=== PATIENT | female | born 1935 | race Caucasian/White ===

== ENCOUNTER 2016-10-31 06:21 | Inpatient (IN) | payer MEDICARE, OTHER ==
[~2016-10-31] VITALS: Ht 167.6 cm; Wt 62.6 kg
[~2016-10-31 06:21] MED LIST: ACET500T68 PO; AMLO5TAB2 PO; CA C1TAB38 PO; CHOL10003 PO; CLOB15OI TP; GABA-586 PO; HYDR25TA9 PO; MULT-658 PO; OMEP20TA63 PO; UBID100C26 PO
--- NOTE | 2016-10-31 06:26 | PHYS DOC ---
Adult General Chief Complaint Chief Complaint: CHEST PAIN HPI HPI Patient is a 80 year old female presenting to the emergency department for evaluation of neck tightness that has been an ongoing issue for months but the reason she came in this morning is because the tightness is radiating down her left arm. She says that she has no nausea vomiting charts of breath diaphoresis unilateral weakness numbness or tingling. Patient says that she takes her blood pressure frequently at home and each time she takes her blood pressure and it indicates that she has an irregular heartbeat. Patient has hypertension but no diabetes or high cholesterol and she says she has never had a stress test or heart catheterization or seen a structural layout worker. Patient is in no obvious distress with normal vital signs. Review of Systems Review of Systems Constitutional: Denies fever or chills [] Eyes: Denies change in visual acuity, redness, or eye pain [] HENT: Denies nasal congestion or sore throat [] Respiratory: Denies cough or shortness of breath [] Cardiovascular: No additional information not addressed in HPI [] GI: Denies abdominal pain, nausea, vomiting, bloody stools or diarrhea [] : Denies dysuria or hematuria [] Musculoskeletal: Denies back pain or joint pain [] Integument: Denies rash or skin lesions [] Neurologic: Denies headache, focal weakness or sensory changes [] Current Medications Current Medications Current Medications Medications (Trade) Dose Ordered Sig/Lawanda Start Time Stop Time Status Last Admin Dose Admin Aspirin (Ecotrin) 325 mg 1X ONCE 10/31/16 07:00 10/31/16 07:01 DC 10/31/16 06:44 325 MG Diazepam (Valium) 5 mg 1X ONCE 10/31/16 07:00 10/31/16 07:01 DC 10/31/16 06:56 5 MG Allergies Allergies Allergies Coded Allergies Type Severity Reaction Last Updated Verified cimetidine Allergy Intermediate 01/04/14 Yes ibuprofen Allergy Intermediate Hives 01/04/14 Yes pregabalin Allergy Intermediate Photosensitivity 01/04/14 Yes Physical Exam Physical Exam Constitutional: Well developed, well nourished, no acute distress, non-toxic appearance. [] HENT: Normocephalic, atraumatic, bilateral external ears normal, oropharynx moist, no oral exudates, nose normal. [] Eyes: PERRLA, EOMI, conjunctiva normal, no discharge. [] Neck: Normal range of motion, no tenderness, supple, no stridor. [] Cardiovascular:Heart rate regular rhythm, no murmur [] Lungs & Thorax: Bilateral breath sounds clear to auscultation [] Abdomen: Bowel sounds normal, soft, no tenderness, no masses, no pulsatile masses. [] Skin: Warm, dry, no erythema, no rash. [] Back: No tenderness, no CVA tenderness. [] Extremities: No tenderness, no cyanosis, no clubbing, ROM intact, no edema. [] Neurologic: Alert and oriented X 3, normal motor function, normal sensory function, no focal deficits noted. [] Current Patient Data Vital Signs Vital Signs Date Time Temp Pulse Resp B/P (MAP) Pulse Ox O2 Delivery O2 Flow Rate FiO2 10/31/16 06:57 67 163/71 (101) 10/31/16 06:33 18 100 Room Air 10/31/16 06:25 98.6 98.6 Lab Values Laboratory Tests Test 10/31/16 06:20 White Blood Count 11.6 x10^3/uL (4.0-11.0) H Red Blood Count 4.36 x10^6/uL (3.50-5.40) Hemoglobin 12.9 g/dL (12.0-15.5) Hematocrit 38.4 % (36.0-47.0) Mean Corpuscular Volume 88 fL (79-100) Mean Corpuscular Hemoglobin 30 pg (25-35) Mean Corpuscular Hemoglobin Concent 34 g/dL (31-37) Red Cell Distribution Width 15.6 % (11.5-14.5) H Platelet Count 270 x10^3/uL (140-400) Neutrophils (%) (Auto) 75 % (31-73) H Lymphocytes (%) (Auto) 18 % (24-48) L Monocytes (%) (Auto) 6 % (0-9) Eosinophils (%) (Auto) 1 % (0-3) Basophils (%) (Auto) 0 % (0-3) Neutrophils # (Auto) 8.7 x10^3uL (1.8-7.7) H Lymphocytes # (Auto) 2.0 x10^3/uL (1.0-4.8) Monocytes # (Auto) 0.7 x10^3/uL (0.0-1.1) Eosinophils # (Auto) 0.1 x10^3/uL (0.0-0.7) Basophils # (Auto) 0.1 x10^3/uL (0.0-0.2) Prothrombin Time 12.8 SEC (11.7-14.0) Prothrombin Time INR 1.0 (0.8-1.1) PTT 26 SEC (24-38) Sodium Level 140 mmol/L (136-145) Potassium Level 3.2 mmol/L (3.5-5.1) L Chloride Level 101 mmol/L (98-107) Carbon Dioxide Level 32 mmol/L (21-32) Anion Gap 7 (6-14) Blood Urea Nitrogen 7 mg/dL (7-20) Creatinine 0.9 mg/dL (0.6-1.0) Estimated GFR (Cockcroft-Gault) 60.2 BUN/Creatinine Ratio 8 (6-20) Glucose Level 98 mg/dL (70-99) Calcium Level 10.2 mg/dL (8.5-10.1) H Magnesium Level 1.7 mg/dL (1.8-2.4) L Total Bilirubin 0.5 mg/dL (0.2-1.0) Aspartate Amino Transferase (AST) 20 U/L (15-37) Alanine Aminotransferase (ALT) 19 U/L (14-59) Alkaline Phosphatase 70 U/L (46-116) Troponin I Quantitative < 0.017 ng/mL (0.000-0.055) UB-Iax-A-Type Natriuretic Peptide 397 pg/mL (0-449) Total Protein 7.4 g/dL (6.4-8.2) Albumin 3.8 g/dL (3.4-5.0) Albumin/Globulin Ratio 1.1 (1.0-1.7) Lipase 79 U/L (73-393) Laboratory Tests 10/31/16 06:20 Laboratory Tests 10/31/16 06:20 EKG EKG Normal sinus rhythm at 70 bpm with normal axis no obvious ST elevation or depression with normal T waves. Radiology/Procedures Radiology/Procedures Normal mediastinum and normal heart size no obvious free air pneumothorax or opacity. Course & Med Decision Making Course & Med Decision Making Patient with neck tightness that radiates down her left arm. She'll be given aspirin and Valium check labs and reassess. Heart score is equal to 4. Given patient has had no prior cardiac risk stratification she'll be admitted for further observation and treatment. Dragon Disclaimer Dragon Disclaimer This electronic medical record was generated, in whole or in part, using a voice recognition dictation system. Departure Departure Impression: Primary Impression: Chest pain Additional Impressions: Hypokalemia Hypomagnesemia Disposition: ADMITTED INPATIENT Admitting Physician: Other (REUSCH) Condition: STABLE Referrals: FINN GLORIA Jr, MD (PCP) Problem Qualifiers Primary Impression: Chest pain Chest pain type: unspecified Qualified Codes: R07.9 - Chest pain, unspecified DOUG OTT DO Oct 31, 2016 06:26
[2016-10-31 06:50] LABS: BASO # 0.1 x10^3/uL (0.0-0.2); BASO % 0 % (0-3); EOS % 1 % (0-3); HEMATOCRIT 38.4 % (36.0-47.0); HEMOGLOBIN 12.9 g/dL (12.0-15.5); LYMPH % 18 % (24-48); MEAN CORPUSCULAR HEMOGLOBIN 30 pg (25-35); MEAN CORPUSCULAR HGB CONC 34 g/dL (31-37); MEAN CORPUSCULAR VOLUME 88 fL (79-100); MONO % 6 % (0-9); NEUT % 75 % (31-73); PLATELET COUNT 270 x10^3/uL (140-400); RED BLOOD COUNT 4.36 x10^6/uL (3.50-5.40); RED CELL DISTRIBUTION WIDTH 15.6 % (11.5-14.5); WHITE BLOOD COUNT 11.6 x10^3/uL (4.0-11.0)
[2016-10-31 06:56] LABS: CALCIUM 10.2 mg/dL (8.5-10.1); CREATININE 0.9 mg/dL (0.6-1.0); GFR 60.2; POTASSIUM 3.2 mmol/L (3.5-5.1)
[2016-10-31] MEDS ORDERED: ASPIRIN ENTERIC COATED 325 MG TABLET.DR. PO ONE (07:00)
[2016-10-31] MEDS ORDERED: diazePAM 5 MG TABLET PO ONE (07:00)
[2016-10-31 07:01] LABS: ALBUMIN 3.8 g/dL (3.4-5.0); ALBUMIN/GLOBULIN RATIO 1.1 (1.0-1.7); MAGNESIUM 1.7 mg/dL (1.8-2.4); TOTAL BILIRUBIN 0.5 mg/dL (0.2-1.0); TOTAL PROTEIN 7.4 g/dL (6.4-8.2)
[2016-10-31 07:08] LABS: PROTHROMBIN TIME PATIENT 12.8 SEC (11.7-14.0)
--- NOTE | 2016-10-31 07:36 | EKG ---
[facility] [address] [place] [address] Test Date: 2016-10-31 Test Time: 06:28:19 Pat Name: YAMILA MUIR Department: Room: Gender: Female Hammerer: : 1935 Requested By: DOUG OTT Order Number: [id number] Reading MD: Cl Carroll Measurements Intervals [place] Rate: 70 P: 55 [place]: 160 QRS: 34 QRSD: 100 T: 42 QT: 406 QTc: 441 Interpretive Statements SINUS RHYTHM LOW LIMB LEAD VOLTAGE RI6.01 Unconfirmed report Compared to ECG 03/07/2012 11:50:34 No significant changes Electronically Signed On 10-31-2016 16:51:22 CDT by Cl Carroll
[2016-10-31] MEDS ORDERED: ONDANSETRON PF 4 MG/2 ML VIAL. IV PRN (08:00)
[2016-10-31] MEDS ORDERED: fentaNYL PF VIAL 100 MCG/2 ML VIAL IV PRN (08:00)
--- NOTE | 2016-10-31 08:16 | RAD ---
Portable chest, 10/31/2016: History: Chest pain, left arm pain Comparison is made to a study from 06/18/2011. The heart size and pulmonary vascularity are normal. There is a calcified granuloma in the left lung. No pulmonary infiltrates are seen. There is no evidence of pleural fluid. IMPRESSION: No acute cardiopulmonary abnormality is detected.
[2016-10-31] MEDS ORDERED: MAGNESIUM SULFATE 2GM 50 ML IV ONE (08:30)
[2016-10-31] MEDS ORDERED: POTASSIUM CHLORIDE 20 MEQ TABLET.ER. PO ONE (09:00)
[2016-10-31] MEDS ORDERED: POTA10TA12 PO (09:38)
[2016-10-31] MEDS ORDERED: CALC11776 PO (09:38)
[2016-10-31] MEDS ORDERED: CARV6.252 PO (09:38)
--- NOTE | 2016-10-31 09:42 | PDOC2 ---
CARDIAC CONSULT DATE OF CONSULT Date of Consult DATE: 10/31/16 TIME: 09:32 REASON FOR CONSULT Reason for Consult: Chest pain REFERRING PHYSICIAN Referring Physician: Dr. Albert SOURCE Source: Chart review, Patient HISTORY OF PRESENT ILLNESS HISTORY OF PRESENT ILLNESS This is an 80 male who presented with complaints of neck pain that radiated down her left arm and palpitations. Neck pain has been ongoing for 2-3 months. Has been going to physical therapy, which did seem to help for a period of time. Recently, has had pain radiating down her left arm. Worse when she turns her head to the right. Recently, has felt fluttering sensation in her chest. Patient takes hear blood pressure frequently at home. Recently, monitor has indicated irregular heart rhythm, which combined with symptoms prompted her to seek care. Recently treated for hypokalemia by PCP. Has had some diarrhea recently. No previous h/o CAD or cardiac workup. PAST MEDICAL HISTORY Cardiovascular: HTN, Hyperlipidemia Pulmonary: No pertinent hx GI: No pertinent hx Heme/Onc: No pertinent hx Hepatobiliary: No pertinent hx Psych: No pertinent hx Musculoskeletal: Osteoarthritis Rheumatologic: No pertinent hx Infectious disease: No pertinent hx ENT: No pertinent hx Renal/: No pertinent hx Endocrine: No pertinent hx Dermatology: No pertinent hx PAST SURGICAL HISTORY Past Surgical History: Total hip replacement (left), Total knee replacement ( left), Hysterectomy, Other (back sx) FAMILY HISTORY Family History: Heart Disease, Hypertension SOCIAL HISTORY Smoke: No ALCOHOL: none Drugs: None Lives: Alone CURRENT MEDICATIONS CURRENT MEDICATIONS Current Medications Medications (Trade) Dose Ordered Sig/Lawanda Route PRN Reason Start Time Stop Time Status Last Admin Dose Admin Aspirin (Ecotrin) 325 mg 1X ONCE PO 10/31/16 07:00 10/31/16 07:01 DC 10/31/16 06:44 Diazepam (Valium) 5 mg 1X ONCE PO 10/31/16 07:00 10/31/16 07:01 DC 10/31/16 06:56 ALLERGIES ALLERGIES: Coded Allergies: cimetidine (Verified Allergy, Intermediate, 01/04/14) Blacks out ibuprofen (Verified Allergy, Intermediate, Hives, 01/04/14) pregabalin (Verified Allergy, Intermediate, Photosensitivity, 01/04/14) ROS Review of System point ROS conducted with pertinent positives noted above in HPI. PHYSICAL EXAM General: Alert, Oriented X3, Cooperative HEENT: Atraumatic, Mucous membr. moist/pink Lungs: Normal air movement Heart: Regular rate, Normal S1, Normal S2, Other (tele SR with frequent PAC's ) Abdomen: Soft, No tenderness Extremities: No edema, Normal pulses Skin: No breakdown, No significant lesion Neuro: Normal speech, Sensation intact Psych/Mental Status: Mental status NL, Mood NL MUSCULOSKELETAL: Osteoarthritic changes both hands VITALS VITALS Vital Signs Date Time Temp Pulse Resp B/P (MAP) Pulse Ox O2 Delivery O2 Flow Rate FiO2 10/31/16 06:57 67 163/71 (101) 10/31/16 06:33 18 100 Room Air 10/31/16 06:25 98.6 98.6 LABS Lab: Laboratory Tests Test 10/31/16 06:20 White Blood Count 11.6 x10^3/uL (4.0-11.0) Red Blood Count 4.36 x10^6/uL (3.50-5.40) Hemoglobin 12.9 g/dL (12.0-15.5) Hematocrit 38.4 % (36.0-47.0) Mean Corpuscular Volume 88 fL (79-100) Mean Corpuscular Hemoglobin 30 pg (25-35) Mean Corpuscular Hemoglobin Concent 34 g/dL (31-37) Red Cell Distribution Width 15.6 % (11.5-14.5) Platelet Count 270 x10^3/uL (140-400) Neutrophils (%) (Auto) 75 % (31-73) Lymphocytes (%) (Auto) 18 % (24-48) Monocytes (%) (Auto) 6 % (0-9) Eosinophils (%) (Auto) 1 % (0-3) Basophils (%) (Auto) 0 % (0-3) Neutrophils # (Auto) 8.7 x10^3uL (1.8-7.7) Lymphocytes # (Auto) 2.0 x10^3/uL (1.0-4.8) Monocytes # (Auto) 0.7 x10^3/uL (0.0-1.1) Eosinophils # (Auto) 0.1 x10^3/uL (0.0-0.7) Basophils # (Auto) 0.1 x10^3/uL (0.0-0.2) Prothrombin Time 12.8 SEC (11.7-14.0) Prothromb Time International Ratio 1.0 (0.8-1.1) Activated Partial Thromboplast Time 26 SEC (24-38) Sodium Level 140 mmol/L (136-145) Potassium Level 3.2 mmol/L (3.5-5.1) Chloride Level 101 mmol/L (98-107) Carbon Dioxide Level 32 mmol/L (21-32) Anion Gap 7 (6-14) Blood Urea Nitrogen 7 mg/dL (7-20) Creatinine 0.9 mg/dL (0.6-1.0) Estimated GFR (Cockcroft-Gault) 60.2 BUN/Creatinine Ratio 8 (6-20) Glucose Level 98 mg/dL (70-99) Calcium Level 10.2 mg/dL (8.5-10.1) Magnesium Level 1.7 mg/dL (1.8-2.4) Total Bilirubin 0.5 mg/dL (0.2-1.0) Aspartate Amino Transf (AST/SGOT) 20 U/L (15-37) Alanine Aminotransferase (ALT/SGPT) 19 U/L (14-59) Alkaline Phosphatase 70 U/L (46-116) Troponin I Quantitative < 0.017 ng/mL (0.000-0.055) LS-Dlv-B-Type Natriuretic Peptide 397 pg/mL (0-449) Total Protein 7.4 g/dL (6.4-8.2) Albumin 3.8 g/dL (3.4-5.0) Albumin/Globulin Ratio 1.1 (1.0-1.7) Lipase 79 U/L (73-393) ASSESSMENT/PLAN ASSESSMENT/PLAN 1. Neck pain 2. Palpitations 3. Malignant hypertension 4. Hypokalemia 5. Hypomagnesemia Recommendations 1. Trend troponin 2. Check TSH, lipids 3. Replace K and Mg. Monitor lytes 4. Resume home antiHTN therapy. Monitor to assess need for titration 5. Given risk factors will proceed with MPI to r/o ischemia etiology 6. Consider outpatient event monitor given palpitations. Consider converting coreg to metoprolol. Problems: MARQUIS RODRIGUEZ APRN Oct 31, 2016 09:42
[2016-10-31] MEDS ORDERED: REGADENOSON 0.4 MG/5 ML DISP.SYRIN. IV ONE (11:00)
[2016-10-31 11:39] VITALS: BP 157/67
[2016-10-31] MEDS ORDERED: amLODIPine BESYLATE 5 MG TABLET PO SCH (14:00)
--- NOTE | 2016-10-31 14:18 | RAD ---
APPROVED REPORT Test Type: Pharmacological Stress Nurse/Tech: Jazz Knox R.N. Test Indications: fast heartbeat Cardiac History: Family history, Hypertension Medications: See Electronic Medical Record Medical History: See Electronic Medical Record Resting ECG: NSR with few PAC's Resting Heart Rate: 64 bpm Resting Blood Pressure: 147/55mmHg Pretest Chest Pain: No chest pain Nurse/Tech Notes S1S2, lungs sound clear Consent: The procedure was explained to the patient in lay terms. Informed consent was witnessed. Rosas eout was entered into [employer]. History and Stress Test performed by Jazz Knox R.N. Pharm. Details Pharmacologic stress testing was performed using 0.4mg per 5ml of regadenoson given intravenously ove r 7-10 seconds. Stress Symptoms Dyspnea POST EXERCISE Reason for Termination: Infusion complete Max HR: 99 bpm Max Blood Pressure: 145/54mmHg Blood Pressure response to exercise: Normal blood pressure response during stress. Chest Pain: No. Arrhythmia: Yes. freq PAC,s. with bigeminy PAC,s ST Change: No. INTERPRETATION Stress EKG Conclusion: Baseline EKG showed sinus rhythm. No ischemic changes at peak stress. No arr hythmias. Imaging Protocol IMAGE PROTOCOL: Rest Tc-99m/stress Tc-99m 1 day Rest: Stress: Viability: Radiopharm.Tc99m NbutsorcoLj26g Sestamibi Dose11.3mCi 32mCi Img Date 10/31/2016 10/31/2016 Inj-Img [id number]. 60min. Rest Admin Site:IV - Left AntecubitalAdministrator:TESFAYE Chase Stress Admin Site: IV - Left AntecubitalAdministrator: Arthur Quinonez, RT (R)(N) STRESS DATA End Diast. Vol.68.0mlAv. Heart Rate83.0bpm End Syst. Vol.10.0mlCO Index BSA0.0L/min Myocardial Xewz830.0gEject. Srysvzdi49.0% Stress Rates Pk. Fill Rate4.83EDV/secLVtime Pk. Fill 203.31msec Pk. Empty Rate5.82ESV/secLVtime Pk. Izvbe986.84msec 04/01 Pk. Fill1.23EDV/sec Stress Scores Regional WT0.00Summed WT0.00 Regional WM0.00Summed WM0.00 Study quality was good. Left Ventricular size was Normal at Rest and Stress. Lung uptake was Normal. Left Ventricular ejection fraction is 85%. The rest and stress images show normal perfusion, normal contraction and thickening. LV Perf. Quant 17 Seg. SSS0.00 17 Seg. SRS1.00 17 Seg. SDS0.00 Stress Defect Extent (% LAD)0.00Rest Defect Extent (% LAD)3.10Rev. Defect Extent (% LAD)0.00 Stress Defect Extent (% LCX) 5.00Rest Defect Extent (% LCX)0.00Rev. Defect Extent (% LCX)0.00 Stress Defect Extent (% RCA)0.00Rest Defect Extent (% RCA)0.00Rev. Defect Extent (% RCA)0.00 Stress Defect Extent (% CHHAYA)0.90Rest Defect Extent (% CHHAYA)2.20Rev. Defect Extent (% CHHAYA)0.00 Conclusion 1. Regadenoson cardioisotope stress test did not show any evidence of ischemia or infarct. 2. Normal left ventricular systolic function with ejection fraction calculated at 85%. 3. Low risk for cardiac events.
[2016-10-31 15:23] LABS: CHOLESTEROL/HDL RATIO 2.5
[2016-10-31 15:27] VITALS: BP 131/48
[2016-10-31] MEDS ORDERED: CARVEDILOL 6.25 MG TABLET. PO SCH (17:00)
--- NOTE | 2016-10-31 18:02 | SSS ---
ADMIT DATE: 10/31/2016 CHIEF COMPLAINT: Palpitations. HISTORY OF PRESENT ILLNESS: The patient is an 80-year-old woman with past medical history of hypertension, who presented to the Emergency Room with a recurrent episode of strong palpitations in her chest. This actually had been going on episodically for the past 2-3 months, but has been get more frequently recently. She has associated neck pain with this as well. Also had pain radiating down her left arm, although this may be musculoskeletal as it seems to be worse with turning her head and she actually had undergone physical therapy as well. Today, however, she had fluttering her chest, which really did not seem to improve at all. When she checked her blood pressure, her heart rhythm was noted to be irregular and she came to the Emergency Room. The patient relates that she actually has been following with her PCP for a previously diagnosed hypokalemia, on replacement, and had been due for checked today. She has frequent diarrheal bowel movements, typically just once a day. She denies any previous heart issues. PAST MEDICAL HISTORY: Hypertension, hyperlipidemia and osteoarthritis. PAST SURGICAL HISTORY: Left total hip replacement, left total knee replacement as well as hysterectomy and back surgery. FAMILY HISTORY: Positive for heart disease as well as hypertension. SOCIAL HISTORY: Lives by herself, never smoked, denies any alcohol use. ALLERGIES: CIMETIDINE, IBUPROFEN, AND PREGABALIN. MEDICATIONS: MAR reconciled with home medications. REVIEW OF SYSTEMS: Positive as per HPI for palpitations, neck and arm pain. Symptoms currently are minimal. She denies any problems. Rest of organ system review save for diarrhea, typically in the morning and occasionally with incontinence. PHYSICAL EXAMINATION: VITAL SIGNS: From today show a blood pressure of 131/48, heart rate of 71, respiratory rate at 18. She is afebrile. GENERAL: This is an 80-year-old well-nourished, woman appearing younger than her stated age, alert and oriented, in no acute distress, very pleasant. HEENT: Shows no scleral icterus. NECK: Supple, without any lymphadenopathy. LUNGS: Clear to auscultation bilaterally. HEART: Regular rate and rhythm. ABDOMEN: Has positive bowel sounds, soft, nontender. EXTREMITIES: Show no edema. SKIN: Warm, soft and dry without any rash. LABORATORY DATA: CBC with a WBC of 11.6, hemoglobin of 12.9, platelets of 270. Chemistries with a BUN and creatinine of 7 and 0.9, potassium at 3.2 and magnesium of 1.7. LFTs within normal limits. IMAGING STUDIES: Chest x-ray obtained in the Emergency Room shows no cardiopulmonary abnormality. HOSPITAL COURSE: The patient was admitted to the hospital for further evaluation by Cardiology. Magnesium as well as potassium were replaced via IV. Cardiology consult was obtained and she was evaluated with a stress test, which was negative; therefore, was deemed appropriate for discharge to home. She will be mailed a Holter monitor for further evaluation of her arrhythmia. She will follow up with Cardiology as arranged by Cardiology on Thursday. SINDI VILLALBA MD DR: SAMSON/nts JOB#: [id number] / [id number] FINN Flanagan MD MTDD
--- NOTE | 2016-11-01 01:18 | ACF ---
Admission Forms Criteria CHEST PAIN Clinical Indications for Admission to Inpatient Care (Place 'X' for any and all applicable criteria): Admission is indicated for chest pain and ANY ONE of the following(1)(2)(3)(4)(5 ): [ ]I. Angina with acute coronary syndrome (Also use Myocardial Infarction or Angina guideline) [ ]II. Hemodynamic instability [ ]III. Angina needing acute intervention as indicated by ALL of the following( 11)(12): [ ]a) Unstable angina is present as indicated by angina that is ANY ONE of the following: [ ]i) New onset [ ]ii) Nocturnal [ ]iii) Prolonged at rest [ ]iv) Progressive [ ]b) Angina warrants acute intervention as indicated by ANY ONE of the following: [ ]i) Recurrent angina (e.g, not responding as previously to treatment) [ ]ii) Angina at rest or with low-level activities despite initial medical therapy [ ]iii) New or presumably new ST-segment depression on ECG [ ]iv) Signs or symptoms of heart failure (eg, dyspnea, pulmonary edema) [ ]v) New or worsening mitral regurgitation [ ]vi) Hemodynamic instability [ ]vii) Dangerous arrhythmia (eg, sustained ventricular tachycardia) [ ]viii) History of percutaneous coronary intervention within 6 months [ ]ix) History of coronary artery bypass graft surgery [ ]x) CLAUS risk score of 2 or greater[A] [ ]xi) History of Diabetes(14) [ ]xii) High-risk cardiac ischemia findings on noninvasive testing (e.g, echocardiogram, treadmill testing, nuclear scan) [ ]xiii) Chronic renal insufficiency (ie, estimated GFR less than 60 mL/min/1.732m) [ ]xiv) Left ventricular ejection fraction less than 40% [ ]IV. Evidence of TX (eg, cardiac biomarkers positive, ST-segment elevation on ECG) also use Myocardial Infarction Criteria Form. [ ]V. Pulmonary edema [ ]. Respiratory distress [ ]VII. Chest pain indicative of serious diagnosis other than coronary artery disease (eg, aortic dissection) [ ]VIII. Contraindications and/or Inappropriate clinical situations for Observational Care in patients with Chest Pain, when ANY ONE of the following is required: [ ]a) Patient with risk factor for pulmonary embolism, acute coronary syndrome and myocardial infarction (18) [ ]b) Patient with Pulmonary embolism require an average LOS of 4.3 days, therefore emergency department observation management is inappropriate 18,23 [ ]c) Painful condition/s in the elderly, have the highest rate of recidivism after emergency department observation management (10.8%) 20,21,22 [ ]d) Elevated cardiac biomarker requires intensive and exhaustive care (19) [X]IX. General contraindications and/or Inappropriate clinical situations for Observational Care in patients with Chest Pain, when ANY ONE of the following is required: [X]a) Prediction of prolongation of LOS based on ANY ONE of the following may be considered as a contraindication for observational care 2, 3, 4, 5, 6, 7, 8, 9, 10, 11 [X]i) Age > 65 yrs. [ ]ii) Patient arriving by ambulance [ ]iii) Patient with high acuity [ ]iv) Patient requiring vital sign monitoring [ ]v) Patient on IV medication [ ]b) Systolic blood pressures 180mmHg 3,12 [ ]c) Patient with altered mental status including delirium and other alteration of consciousness, (3) [ ]d) Patient whose discharge disposition will be to a senior care home or rehabilitation home should not be managed in Emergency Department Observation Unit. CMS rule requires 3 days hospital stay before such placement. 3,13 [ ]e) Patient with failure to thrive due to broad array of etiologies 3,16,17 [ ]f) Inability to ambulate 3,14 Extended stay beyond goal length of stay may be needed for (1)(28): [ ]a) Specific condition diagnosed after evaluation (eg, pulmonary embolism, aortic dissection) [ ]b) Unstable angina [ ]c) Continued suspicion of acute coronary syndrome with inability to complete needed cardiac evaluation (eg, patient clinically unable to undergo stress testing) [ ]d) Myocardial infarction (Contents from ANGINA and CHEST PAIN clinical indications for admission to inpatient care have been integrated in this form) The original [employer] content created by [employer] has been revised. The portions of the content which have been revised are identified through the use of italic text or in bold, and [facility] has neither reviewed nor approved the modified material. All other unmodified content is copyright [employer]. Please see references footnoted in the original [facility] [employer] edition 2016 Admission Criteria Met?: Yes JAVID JONES Nov 01, 2016 01:18
== END 2016-10-31 17:10 | disposition home or self-care (01) | DRG 556 ==
LOC: ER 06:21 → 6 SOUTH 07:20
PROVIDERS: ADMIT Internal Medicine Hematology & Oncology; ATTEND Internal Medicine Hematology & Oncology
DX: M79.1 Myalgia (principal); R07.9 Chest pain, unspecified; E87.6 Hypokalemia; E83.42 Hypomagnesemia; E78.5 Hyperlipidemia, unspecified; I10 Essential (primary) hypertension; M19.90 Unspecified osteoarthritis, unspecified site; Z96.642 Presence of left artificial hip joint; Z96.652 Presence of left artificial knee joint; Z60.2 Problems related to living alone; R00.2 Palpitations; M54.2 Cervicalgia; Z88.6 Allergy status to analgesic agent; Z88.8 Allergy status to other drugs, medicaments and biological substances; Z90.710 Acquired absence of both cervix and uterus; Z82.49 Family history of ischemic heart disease and other diseases of the circulatory system
CPT/HCPCS: 36415; 71010; 78452; 80053; 80061; 83690; 83735; 83880; 84443; 84484; 85027; 85610; 85730; 93005; 93017; 96374; 96375; 96376; A9500; C1887; J2785; J7060; 99285-25

== ENCOUNTER 2020-09-22 10:46 | Inpatient (IN) | payer MEDICARE ==
[~2020-09-22] VITALS: Ht 152.4 cm; Wt 51.9 kg
[~2020-09-22 10:46] MED LIST changes: +AMLO-186 PO; -AMLO5TAB2 PO; +CALC11776 PO; +CARV6.2511 PO; -GABA-586 PO; +GABA300C18 PO; +HYDR-2145 PO; -HYDR25TA9 PO; +POTASSIUM CHLO10 ME1 PO
--- NOTE | 2020-09-22 11:03 | RAD ---
FOR INTERNAL CODING PURPOSES Critical result: Findings discussed with Dr. Mcmahon at 09/22/2020 10:58 AM. RESULT CODE: (C) Exam: CT head without contrast. Date: 09/22/2020, comparison:None available Indication: Code stroke, altered mental status, effusion Technique: 5 mm axial images of the head were obtained without contrast. Findings: There is low attenuation within the periventricular white matter consistent with chronic small vessel ischemic disease. Prominence of cortical sulci and ventricular system is noted. There is cerebral at rophy. Midline structures are central. No hydrocephalus. No suspicious cerebral edema. No mass lesion or mid line shift is seen. No extra axial fluid collection, intracranial hemorrhage or acute ischemia is de tected. The visualized paranasal sinuses and mastoid air cells are clear. The osseous calvarium appea rs unremarkable. Impression: 1.Chronic small vessel ischemic disease and cerebral atrophy. 2.No acute findings. PQRS Compliance Statement: One or more of the following individualized dose reduction techniques were utilized for this examinat ion: 1. Automated exposure control 2. Adjustment of the mA and/or kV according to patient size 3. Use of iterative reconstruction technique Electronically signed by: Johanna Hu MD (09/22/2020 11:00 AM) [facility]
[2020-09-22 11:44] LABS: BASO # 0.1 x10^3/uL (0.0-0.2); BASO % 1 % (0-3); EOS % 0 % (0-3); HEMATOCRIT 37.4 % (36.0-47.0); HEMOGLOBIN 12.7 g/dL (12.0-15.5); LYMPH # 1.4 x10^3/uL (1.0-4.8); LYMPH % 16 % (24-48); MEAN CORPUSCULAR HEMOGLOBIN 30 pg (25-35); MEAN CORPUSCULAR HGB CONC 34 g/dL (31-37); MEAN CORPUSCULAR VOLUME 88 fL (79-100); MONO # 0.6 x10^3/uL (0.0-1.1); MONO % 7 % (0-9); NEUT # 6.6 x10^3/uL (1.8-7.7); NEUT % 76 % (31-73); PLATELET COUNT 460 x10^3/uL (140-400); RED BLOOD COUNT 4.24 x10^6/uL (3.50-5.40); RED CELL DISTRIBUTION WIDTH 15.2 % (11.5-14.5); WHITE BLOOD COUNT 8.7 x10^3/uL (4.0-11.0)
[2020-09-22 12:19] LABS: BILIRUBIN,URINE NEGATIVE (NEG); CLARITY,URINE CLEAR; COLOR,URINE YELLOW; NITRITE,URINE NEGATIVE (NEG); PROTEIN,URINE NEGATIVE (NEG-TRACE); UROBILINOGEN,URINE 0.2 mg/dL (0.2 mg/dL)
[2020-09-22 12:33] LABS: HYALINE CASTS, URINE FEW /HPF
[2020-09-22 12:34] LABS: RBC,URINE OCC /HPF (0-2); WBC,URINE OCC /HPF (0-4)
[2020-09-22 12:35] LABS: BACTERIA,URINE 0 /HPF (0-FEW)
[2020-09-22 12:51] LABS: PROTHROMBIN TIME PATIENT 12.2 SEC (11.7-14.0)
[2020-09-22 12:59] LABS: CALCIUM 8.7 mg/dL (8.5-10.1); CREATININE 0.8 mg/dL (0.6-1.0); GFR 68.3; POTASSIUM 3.8 mmol/L (3.5-5.1)
[2020-09-22 13:04] LABS: ALBUMIN 2.9 g/dL (3.4-5.0); MAGNESIUM 1.9 mg/dL (1.8-2.4); TOTAL BILIRUBIN 0.6 mg/dL (0.2-1.0); TOTAL PROTEIN 5.8 g/dL (6.4-8.2)
--- NOTE | 2020-09-22 13:33 | PHYS DOC ---
Past Medical History Past Medical History: High Cholesterol, Hypertension, Other Additional Past Medical Histor: poor historian Past Surgical History: Hip Replacement, Knee Replacement Additional Past Surgical Histo: left knee, left hip Smoking Status: Never Smoker Alcohol Use: Occasionally Drug Use: None General Adult EDM: Chief Complaint: CONFUSION HPI: HPI: Patient is a 84 year old female who was brought by EMS from home due to confusion. Per neighbor, patient was seen at [facility] for some medical problem. She was discharged home. Her neighbor checked on her today, found her to be very confused so EMS was called to take her here for evaluation. NOT SURE WHEN SHE WAS KNOWN NORMAL. Upon arrival to room, patient was confused, not coherent. She was observed moving all extremities but will not consistently following command. When asked what is her name, she said Yamila. She said she knows what today is but will not tell us what date. Her speech was clear. She was tracking with her eyes. Review of Systems: Review of Systems: not able to obtain due to condition Heart Score: C/O Chest Pain: N/A Risk Factors: Risk Factors: DM, Current or recent (<one month) smoker, HTN, HLP, family history of CAD, obesity. Risk Scores: Score 0 - 3: 2.5% MACE over next 6 weeks - Discharge Home Score 4 - 6: 20.3% MACE over next 6 weeks - Admit for Clinical Observation Score 7 - 10: 72.7% MACE over next 6 weeks - Early Invasive Strategies Allergies: Allergies: Allergies Coded Allergies Type Severity Reaction Last Updated Verified cimetidine Allergy Intermediate 01/04/14 Yes ibuprofen Allergy Intermediate Hives 01/04/14 Yes pregabalin Allergy Intermediate Photosensitivity 01/04/14 Yes Physical Exam: PE: Constitutional: Well developed, well nourished, no acute distress, non-toxic appearance. [] HENT: Normocephalic, atraumatic, bilateral external ears normal, oropharynx moist, no oral exudates, nose normal. [] Eyes: PERRLA, EOMI, conjunctiva normal, no discharge. [] Neck: Normal range of motion, no tenderness, supple, no stridor. [] Cardiovascular:Heart rate regular rhythm, no murmur [] Lungs & Thorax: Bilateral breath sounds clear to auscultation [] Abdomen: Bowel sounds normal, soft, no tenderness, no masses, no pulsatile masses. [] Skin: Warm, dry, no erythema, no rash. [] Back: No tenderness, no CVA tenderness. [] Extremities: No tenderness, no cyanosis, no clubbing, ROM intact, no edema. [] Neurologic: Alert but confused, normal motor function, normal sensory function, no focal deficits noted. [] Psychologic: Affect normal, judgement normal, mood normal. [] Current Patient Data: Labs: Laboratory Tests Test 09/22/20 11:30 09/22/20 11:58 09/22/20 12:10 09/22/20 12:34 White Blood Count 8.7 x10^3/uL (4.0-11.0) Red Blood Count 4.24 x10^6/uL (3.50-5.40) Hemoglobin 12.7 g/dL (12.0-15.5) Hematocrit 37.4 % (36.0-47.0) Mean Corpuscular Volume 88 fL (79-100) Mean Corpuscular Hemoglobin 30 pg (25-35) Mean Corpuscular Hemoglobin Concent 34 g/dL (31-37) Red Cell Distribution Width 15.2 % (11.5-14.5) H Platelet Count 460 x10^3/uL (140-400) H Neutrophils (%) (Auto) 76 % (31-73) H Lymphocytes (%) (Auto) 16 % (24-48) L Monocytes (%) (Auto) 7 % (0-9) Eosinophils (%) (Auto) 0 % (0-3) Basophils (%) (Auto) 1 % (0-3) Neutrophils # (Auto) 6.6 x10^3/uL (1.8-7.7) Lymphocytes # (Auto) 1.4 x10^3/uL (1.0-4.8) Monocytes # (Auto) 0.6 x10^3/uL (0.0-1.1) Eosinophils # (Auto) 0.0 x10^3/uL (0.0-0.7) Basophils # (Auto) 0.1 x10^3/uL (0.0-0.2) Urine Collection Type U cath Urine Color Yellow Urine Clarity Clear Urine pH 6.0 (<5.0-8.0) Urine Specific Hagerman 1.015 (1.000-1.030) Urine Protein Negative mg/dL (NEG-TRACE) Urine Glucose (UA) Negative mg/dL (NEG) Urine Ketones (Stick) Negative mg/dL (NEG) Urine Blood Negative (NEG) Urine Nitrite Negative (NEG) Urine Bilirubin Negative (NEG) Urine Urobilinogen Dipstick 0.2 mg/dL (0.2 mg/dL) Urine Leukocyte Esterase Negative (NEG) Urine RBC Occ /HPF (0-2) Urine WBC Occ /HPF (0-4) Urine Squamous Epithelial Cells Occ /LPF Urine Bacteria 0 /HPF (0-FEW) Urine Hyaline Casts Few /HPF Urine Mucus Slight /LPF Sodium Level 142 mmol/L (136-145) Potassium Level 3.8 mmol/L (3.5-5.1) Chloride Level 107 mmol/L (98-107) Carbon Dioxide Level 27 mmol/L (21-32) Anion Gap 8 (6-14) Blood Urea Nitrogen 18 mg/dL (7-20) Creatinine 0.8 mg/dL (0.6-1.0) Estimated GFR (Cockcroft-Gault) 68.3 BUN/Creatinine Ratio 23 (6-20) H Glucose Level 96 mg/dL (70-99) Calcium Level 8.7 mg/dL (8.5-10.1) Magnesium Level 1.9 mg/dL (1.8-2.4) Total Bilirubin 0.6 mg/dL (0.2-1.0) Aspartate Amino Transferase (AST) 18 U/L (15-37) Alanine Aminotransferase (ALT) 18 U/L (14-59) Alkaline Phosphatase 58 U/L (46-116) Troponin I Quantitative < 0.017 ng/mL (0.000-0.055) Total Protein 5.8 g/dL (6.4-8.2) L Albumin 2.9 g/dL (3.4-5.0) L Albumin/Globulin Ratio 1.0 (1.0-1.7) Prothrombin Time 12.2 SEC (11.7-14.0) Prothrombin Time INR 0.9 (0.8-1.1) Activated Partial Thromboplast Time 26 SEC (24-38) Laboratory Tests 09/22/20 11:30 Laboratory Tests 09/22/20 12:10 Vital Signs: Vital Signs Date Time Temp Pulse Resp B/P (MAP) Pulse Ox O2 Delivery O2 Flow Rate FiO2 09/22/20 10:46 97.9 79 16 142/67 (92) 97 Room Air 97.9 EKG: EKG: EKG was done at 1102, heart rate 78 bpm, no ST segment elevation. [] Radiology/Procedures: Radiology/Procedures: [][facility] [address] [place] [address] IMAGING REPORT Signed PATIENT: YAMILA MUIR ACCOUNT: [id number] : 1935 LOCATION: ER AGE: 84 SEX: F EXAM STATUS: REG ER ORD. PHYSICIAN: VALERIA MARTEL DO REASON: AMS, APHASIA PROCEDURE: CT CODE STROKE HEAD WO FOR INTERNAL CODING PURPOSES Critical result: Findings discussed with Dr. Martel at 09/22/2020 10:58 AM. RESULT CODE: (C) Exam: CT head without contrast. Date: 09/22/2020, comparison:None available Indication: Code stroke, altered mental status, effusion Technique: 5 mm axial images of the head were obtained without contrast. Findings: There is low attenuation within the periventricular white matter consistent with chronic small vessel ischemic disease. Prominence of cortical sulci and ventric ular system is noted. There is cerebral atrophy. Midline structures are central. No hydrocephalus. No suspicious cerebral edema. No mass lesion or midline shift is seen. No extra axial fluid collection, intracranial hemorrhage or acute ischemia is detected. The visualized paranasal sinuses and mastoid air cells are clear. The osseous calvarium appears unremarkable. Impression: 1.Chronic small vessel ischemic disease and cerebral atrophy. 2.No acute findings. PQRS Compliance Statement: One or more of the following individualized dose reduction techniques were utilized for this examination: 1. Automated exposure control 2. Adjustment of the mA and/or kV according to patient size 3. Use of iterative reconstruction technique Electronically signed by: Johanna Hu MD (09/22/2020 11:00 AM) [facility] DICTATED and SIGNED BY: JOHANNA HU MD DATE: 09/22/20 [id number] 0 Course & Med Decision Making: Course & Med Decision Making Pertinent Labs and Imaging studies reviewed. (See chart for details) Patient is an 84-year-old female who was brought here by EMS from home due to confusion. CT scan and lab work did not show any acute problem. After she was here for couple hour patient was awake alert oriented to time place and person, she was able to get up and walk to the bathroom without any problem. I suspect that patient had episode of sundown. Patient will be admitted to hospital for observation. Discussed with the hospitalist on-call Dr. Linares who agreed to admit the patient Dragon Disclaimer: Andres Disclaimer: This electronic medical record was generated, in whole or in part, using a voice recognition dictation system. Departure Departure Impression: Primary Impression: AMS (altered mental status) Additional Impression: Dementia Disposition: 09 ADMITTED INPATIENT Admitting Physician: RADHA (Dr. Linares) Condition: IMPROVED Referrals: UNKNOWN PCP NAME (PCP) VALERIA MARTEL DO Sep 22, 2020 13:33
--- NOTE | 2020-09-22 13:57 | PDOC1 ---
History and Physical Date of Admission Date of Admission DATE: 09/22/20 TIME: 13:57 Identification/Chief Complaint Chief Complaint CONFUSIOM, SISTER AND NEIGHBOR CONCERNED, fall with head injury last week History of Present Illness History of Present Illness 84 YR OLD FEMALE who fell last week, with head injury was discharged from [facility] ? yesterday, poor historian for exact details, went home and " stayed up too late talking to her sister " awoke confused, family called EMS. on arrival here was confused, seen by Dr Martel who was concerned for new onset AMS. After arriving in ER, Mentation now much improved, walking to restroom, oriented to place, year, month, day, current President, will plan to admit and consult Neurology, culture blood and urine, neurochecks q 4 hrs, fall precautions IMPRESSION ===Chronic small vessel ischemic disease and cerebral atrophy. No acute findings. on CT HEAD 09-22 / ALTERED mentation, now improving / fall with head injury last week , possible concussion syndrome plan == Neurology consult // need recent records [facility] blood and urine cultures neurochecks q 4 hrs dvt prophylaxis home meds fall precautions D/W ER Past Medical History Past Medical History Past Medical History Past Medical History: High Cholesterol, Hypertension, Other Additional Past Medical Histor: poor historian Past Surgical History: Hip Replacement, Knee Replacement Additional Past Surgical Histo: left knee, left hip Smoking Status: Never Smoker Alcohol Use: Occasionally Drug Use: None FHX HTN PAST MEDICAL HISTORY: Hypertension, hyperlipidemia and osteoarthritis. PAST SURGICAL HISTORY: Left total hip replacement, left total knee replacement as well as hysterectomy and back surgery. FAMILY HISTORY: Positive for heart disease as well as hypertension. SOCIAL HISTORY: , never smoked, denies any alcohol use. ALLERGIES: CIMETIDINE, IBUPROFEN, AND PREGABALIN. MEDICATIONS: MAR reconciled with home medications. Cardiovascular: HTN, Hyperlipidemia Pulmonary: No pertinent hx GI: No pertinent hx Heme/Onc: No pertinent hx Hepatobiliary: No pertinent hx Psych: No pertinent hx Musculoskeletal: Osteoarthritis Rheumatologic: No pertinent hx Infectious disease: No pertinent hx ENT: No pertinent hx Renal/: No pertinent hx Endocrine: No pertinent hx Past Surgical History Past Surgical History: Total hip replacement, Total knee replacement, Hysterectomy, Other Family History Family History: Heart Disease, Hypertension Social History Smoke: No ALCOHOL: none Drugs: None Current Problem List Problem List Problems Medical Problems: (1) AMS (altered mental status) Status: Acute (2) Dementia Status: Acute Current Medications Current Medications Active Scripts Active Reported Tums Ultra Strength (Calcium Carbonate) 1,177 Mg Tab.chew 1,177 Mg PO PRN PRN Potassium Chloride 10 Meq Tablet.er 10 Meq PO DAILY Carvedilol 6.25 Mg Tablet 1 Tab PO BID Calcium + D Soft Chewable Tab (Ca Carbonate/Vitamin D3/Vit K) 1 Each Tab.chew 1 Each PO Centrum Silver Tablet (Multivits-Min/Fa/Lycopene/Lut) 1 Each Tablet 1 Each PO Acetaminophen 500 Mg Tablet 500 Mg PO Amlodipine Besylate 5 Mg Tablet 1 Tab PO DAILY Allergies Allergies: Coded Allergies: cimetidine (Verified Allergy, Intermediate, 01/04/14) Blacks out ibuprofen (Verified Allergy, Intermediate, Hives, 01/04/14) pregabalin (Verified Allergy, Intermediate, Photosensitivity, 01/04/14) Physical Exam Physical Exam Constitutional: Well developed, well nourished, no acute distress, non-toxic appearance. [] HENT: Normocephalic, atraumatic, bilateral external ears normal, oropharynx moist, no oral exudates, nose normal. [] Eyes: PERRLA, EOMI, conjunctiva normal, no discharge. [] Neck: Normal range of motion, no tenderness, supple, no stridor. [] Cardiovascular:Heart rate regular rhythm, no murmur [] Lungs & Thorax: Bilateral breath sounds clear to auscultation [] Abdomen: Bowel sounds normal, soft, no tenderness, no masses, no pulsatile m asses. [] Skin: Warm, dry, no erythema, no rash. [] Back: No tenderness, no CVA tenderness. [] Extremities: No tenderness, no cyanosis, no clubbing, ROM intact, no edema. [] Neurologic: Alert and oriented X 3, normal motor function, normal sensory function, no focal deficits noted. [] Psychologic: Affect normal, judgement normal, mood normal. [] General: Oriented X3, Cooperative, No acute distress HEENT: PERRLA, EOMI, Mucous membr. moist/pink Lungs: Clear to auscultation, Normal air movement Heart: S1S2, RRR, no thrills, no gallops, no jug vein distention Breasts: Not examined Abdomen: Normal bowel sounds, Soft Rectal Exam: not examined Extremities: No clubbing, No cyanosis, No edema Skin: No breakdown, No significant lesion Neuro: Normal speech, Sensation intact, Cranial nerves 3-12 NL Psych/Mental Status: Mental status NL, Mood NL Vitals Vitals Vital Signs Date Time Temp Pulse Resp B/P (MAP) Pulse Ox O2 Delivery O2 Flow Rate FiO2 09/22/20 10:46 97.9 79 16 142/67 (92) 97 Room Air 97.9 Labs Labs Laboratory Tests Test 09/22/20 11:30 09/22/20 11:58 09/22/20 12:10 09/22/20 12:34 White Blood Count 8.7 x10^3/uL (4.0-11.0) Red Blood Count 4.24 x10^6/uL (3.50-5.40) Hemoglobin 12.7 g/dL (12.0-15.5) Hematocrit 37.4 % (36.0-47.0) Mean Corpuscular Volume 88 fL (79-100) Mean Corpuscular Hemoglobin 30 pg (25-35) Mean Corpuscular Hemoglobin Concent 34 g/dL (31-37) Red Cell Distribution Width 15.2 % (11.5-14.5) Platelet Count 460 x10^3/uL (140-400) Neutrophils (%) (Auto) 76 % (31-73) Lymphocytes (%) (Auto) 16 % (24-48) Monocytes (%) (Auto) 7 % (0-9) Eosinophils (%) (Auto) 0 % (0-3) Basophils (%) (Auto) 1 % (0-3) Neutrophils # (Auto) 6.6 x10^3/uL (1.8-7.7) Lymphocytes # (Auto) 1.4 x10^3/uL (1.0-4.8) Monocytes # (Auto) 0.6 x10^3/uL (0.0-1.1) Eosinophils # (Auto) 0.0 x10^3/uL (0.0-0.7) Basophils # (Auto) 0.1 x10^3/uL (0.0-0.2) Urine Collection Type U cath Urine Color Yellow Urine Clarity Clear Urine pH 6.0 (<5.0-8.0) Urine Specific [place] 1.015 (1.000-1.030) Urine Protein Negative mg/dL (NEG-TRACE) Urine Glucose (UA) Negative mg/dL (NEG) Urine Ketones (Stick) Negative mg/dL (NEG) Urine Blood Negative (NEG) Urine Nitrite Negative (NEG) Urine Bilirubin Negative (NEG) Urine Urobilinogen Dipstick 0.2 mg/dL (0.2 mg/dL) Urine Leukocyte Esterase Negative (NEG) Urine RBC Occ /HPF (0-2) Urine WBC Occ /HPF (0-4) Urine Squamous Epithelial Cells Occ /LPF Urine Bacteria 0 /HPF (0-FEW) Urine Hyaline Casts Few /HPF Urine Mucus Slight /LPF Sodium Level 142 mmol/L (136-145) Potassium Level 3.8 mmol/L (3.5-5.1) Chloride Level 107 mmol/L (98-107) Carbon Dioxide Level 27 mmol/L (21-32) Anion Gap 8 (6-14) Blood Urea Nitrogen 18 mg/dL (7-20) Creatinine 0.8 mg/dL (0.6-1.0) Estimated GFR (Cockcroft-Gault) 68.3 BUN/Creatinine Ratio 23 (6-20) Glucose Level 96 mg/dL (70-99) Calcium Level 8.7 mg/dL (8.5-10.1) Magnesium Level 1.9 mg/dL (1.8-2.4) Total Bilirubin 0.6 mg/dL (0.2-1.0) Aspartate Amino Transf (AST/SGOT) 18 U/L (15-37) Alanine Aminotransferase (ALT/SGPT) 18 U/L (14-59) Alkaline Phosphatase 58 U/L (46-116) Troponin I Quantitative < 0.017 ng/mL (0.000-0.055) Total Protein 5.8 g/dL (6.4-8.2) Albumin 2.9 g/dL (3.4-5.0) Albumin/Globulin Ratio 1.0 (1.0-1.7) Prothrombin Time 12.2 SEC (11.7-14.0) Prothromb Time International Ratio 0.9 (0.8-1.1) Activated Partial Thromboplast Time 26 SEC (24-38) Laboratory Tests Test 09/22/20 11:30 09/22/20 11:58 09/22/20 12:10 09/22/20 12:34 White Blood Count 8.7 x10^3/uL (4.0-11.0) Red Blood Count 4.24 x10^6/uL (3.50-5.40) Hemoglobin 12.7 g/dL (12.0-15.5) Hematocrit 37.4 % (36.0-47.0) Mean Corpuscular Volume 88 fL (79-100) Mean Corpuscular Hemoglobin 30 pg (25-35) Mean Corpuscular Hemoglobin Concent 34 g/dL (31-37) Red Cell Distribution Width 15.2 % (11.5-14.5) Platelet Count 460 x10^3/uL (140-400) Neutrophils (%) (Auto) 76 % (31-73) Lymphocytes (%) (Auto) 16 % (24-48) Monocytes (%) (Auto) 7 % (0-9) Eosinophils (%) (Auto) 0 % (0-3) Basophils (%) (Auto) 1 % (0-3) Neutrophils # (Auto) 6.6 x10^3/uL (1.8-7.7) Lymphocytes # (Auto) 1.4 x10^3/uL (1.0-4.8) Monocytes # (Auto) 0.6 x10^3/uL (0.0-1.1) Eosinophils # (Auto) 0.0 x10^3/uL (0.0-0.7) Basophils # (Auto) 0.1 x10^3/uL (0.0-0.2) Urine Collection Type U cath Urine Color Yellow Urine Clarity Clear Urine pH 6.0 (<5.0-8.0) Urine Specific [place] 1.015 (1.000-1.030) Urine Protein Negative mg/dL (NEG-TRACE) Urine Glucose (UA) Negative mg/dL (NEG) Urine Ketones (Stick) Negative mg/dL (NEG) Urine Blood Negative (NEG) Urine Nitrite Negative (NEG) Urine Bilirubin Negative (NEG) Urine Urobilinogen Dipstick 0.2 mg/dL (0.2 mg/dL) Urine Leukocyte Esterase Negative (NEG) Urine RBC Occ /HPF (0-2) Urine WBC Occ /HPF (0-4) Urine Squamous Epithelial Cells Occ /LPF Urine Bacteria 0 /HPF (0-FEW) Urine Hyaline Casts Few /HPF Urine Mucus Slight /LPF Sodium Level 142 mmol/L (136-145) Potassium Level 3.8 mmol/L (3.5-5.1) Chloride Level 107 mmol/L (98-107) Carbon Dioxide Level 27 mmol/L (21-32) Anion Gap 8 (6-14) Blood Urea Nitrogen 18 mg/dL (7-20) Creatinine 0.8 mg/dL (0.6-1.0) Estimated GFR (Cockcroft-Gault) 68.3 BUN/Creatinine Ratio 23 (6-20) Glucose Level 96 mg/dL (70-99) Calcium Level 8.7 mg/dL (8.5-10.1) Magnesium Level 1.9 mg/dL (1.8-2.4) Total Bilirubin 0.6 mg/dL (0.2-1.0) Aspartate Amino Transf (AST/SGOT) 18 U/L (15-37) Alanine Aminotransferase (ALT/SGPT) 18 U/L (14-59) Alkaline Phosphatase 58 U/L (46-116) Troponin I Quantitative < 0.017 ng/mL (0.000-0.055) Total Protein 5.8 g/dL (6.4-8.2) Albumin 2.9 g/dL (3.4-5.0) Albumin/Globulin Ratio 1.0 (1.0-1.7) Prothrombin Time 12.2 SEC (11.7-14.0) Prothromb Time International Ratio 0.9 (0.8-1.1) Activated Partial Thromboplast Time 26 SEC (24-38) Images Images It helps to think and talk about your own wishes for healthcare in case youre ever not able to tell your loved ones or healthcare team what your wishes are. If you became really sick tomorrow, would your loved ones or healthcare team know what your wishes were? Here are some examples of different sets of goals and health care directives for your conversations: My wish is to use all medical therapies including resuscitation (such as CPR) and artificial life- sustaining treatments (such as machines and medicine) in an intensive care unit, to keep me alive if at all possible. My wish is to live as long as possible, but I dont want attempts to bring me back to life if my heart and breathing stop. I would like full medical care but without using resuscitation or artificial life-sustaining intensive treatments, if these are unlikely to make me live longer or restore me to a certain quality of life. I will accept treatments that try to fix medical problems, but if Im not getting better or going to have a certain quality of life, I would want to switch to focusing only on my comfort and letting my happen naturally. My wish is for healthcare to focus on my comfort and lessen suffering. I would like medical care that focuses only on my quality of life and that allows me to naturally. Consider: What does a good quality of life mean for me? For many people, it is the ability to live independently and tell their own story. I may define it differently. Under what circumstances would I not want to be kept alive by medical treatments, resuscitation, or intensive care? What kind of changes to my health or life might make me change my mind? If I clearly am facing the last chapter of my life, how do I want the story to end? Who do I want to speak for me if I cant speak for myself? Do they understand my preferences? Are they willing to assume the role of my Durable Power of Circular Knitter? Can I change my Goals of Care Designation? Yes, your Goals of Care Designation can be changed at any time. It should be reviewed if: your health condition changes your circumstances change (such as new understanding) you are transferred or admitted to another healthcare setting dpoa review, to pt portal 19 min and question review Nurse/Tech Notes S1S2, lungs sound clear Consent: The procedure was explained to the patient in lay terms. Informed consent was witnessed. Timeout was entered into [employer] History and Stress Test performed by [facility] [employer]. Details Pharmacologic stress testing was performed using 0.4mg per 5ml of regadenoson given intravenously over 7-10 seconds. Stress Symptoms Dyspnea POST EXERCISE Reason for Termination: Infusion complete Max HR: 99 bpm Max Blood Pressure: 145/54mmHg Blood Pressure response to exercise: Normal blood pressure response during stress. Chest Pain: No. Arrhythmia: Yes. freq PAC,s. with bigeminy PAC,s ST Change: No. INTERPRETATION Stress EKG Conclusion: Baseline EKG showed sinus rhythm. No ischemic changes at peak stress. No arrhythmias. Imaging Protocol IMAGE PROTOCOL: Rest Tc-99m/stress Tc-99m 1 day Rest: Stress: Viability: Radiopharm. Tc99m Sestamibi Tc99m Sestamibi Dose 11.3mCi 32mCi Img Date 10/31/2016 10/31/2016 Inj-Img Time 60min. 60min. Rest Admin Site: IV - Left Antecubital Oil Distributor Tender: TESFAYE Chase Stress Admin Site: IV - Left Antecubital Oil Distributor Tender: Arthur Quinonez, RT (R)(N) STRESS DATA End Diast. Vol. 68.0ml Av. Heart Rate 83.0bpm End Syst. Vol. 10.0ml CO Index BSA 0.0L/min Myocardial Mass 109.0g Eject. Fraction 85.0% Stress Rates Pk. Fill Rate 4.83EDV/sec LVtime Pk. Fill 203.31msec Pk. Empty Rate 5.82ESV/sec LVtime Pk. Eject 110.84msec 1/3 Pk. Fill 1.23EDV/sec Stress Scores Regional WT 0.00 Summed WT 0.00 Regional WM 0.00 Summed WM 0.00 Study quality was good. Left Ventricular size was Normal at Rest and Stress. Lung uptake was Normal. Left Ventricular ejection fraction is 85%. The rest and stress images show normal perfusion, normal contraction and thickening. LV Perf. Quant 17 Seg. SSS 0.00 17 Seg. SRS 1.00 17 Seg. SDS 0.00 Stress Defect Extent (% LAD) 0.00 Rest Defect Extent (% LAD) 3.10 Rev. Defect Extent (% LAD) 0.00 Stress Defect Extent (% LCX) 5.00 Rest Defect Extent (% LCX) 0.00 Rev. Defect Extent (% LCX) 0.00 Stress Defect Extent (% RCA) 0.00 Rest Defect Extent (% RCA) 0.00 Rev. Defect Extent (% RCA) 0.00 Stress Defect Extent (% CHHAYA) 0.90 Rest Defect Extent (% CHHAYA) 2.20 Rev. Defect Extent (% CHHAYA) 0.00 Conclusion 1. Regadenoson cardioisotope stress test did not show any evidence of ischemia or infarct. 2. Normal left ventricular systolic function with ejection fraction calculated at 85%. 3. Low risk for cardiac events. PATIENT: YAMILA MUIR ACCOUNT: [id number] : 1935 LOCATION: ER AGE: 84 SEX: F EXAM STATUS: REG ER ORD. PHYSICIAN: VALERIA MARTEL DO REASON: AMS, APHASIA PROCEDURE: CT CODE STROKE HEAD WO FOR INTERNAL CODING PURPOSES Critical result: Findings discussed with Dr. Martel at 09/22/2020 10:58 AM. RESULT CODE: (C) Exam: CT head without contrast. Date: 09/22/2020, comparison:None available Indication: Code stroke, altered mental status, effusion Technique: 5 mm axial images of the head were obtained without contrast. Findings: There is low attenuation within the periventricular white matter consistent with chronic small vessel ischemic disease. Prominence of cortical sulci and ventricular system is noted. There is cerebral atrophy. Midline structures are central. No hydrocephalus. No suspicious cerebral edema. No mass lesion or midline shift is seen. No extra axial fluid collection, intracranial hemorrhage or acute ischemia is detected. The visualized paranasal sinuses and mastoid air cells are clear. The osseous calvarium appears unr emarkable. Impression: 1.Chronic small vessel ischemic disease and cerebral atrophy. 2.No acute findings. PQRS Compliance Statement: One or more of the following individualized dose reduction techniques were utilized for this examination: 1. Automated exposure control 2. Adjustment of the mA and/or kV according to patient size 3. Use of iterative reconstruction technique Electronically signed by: Johanna Hu MD (09/22/2020 11:00 AM) [facility] FOR INTERNAL CODING PURPOSES Critical result: Findings discussed with Dr. Martel at 09/22/2020 10:58 AM. RESULT CODE: (C) Exam: CT head without contrast. Date: 09/22/2020, comparison:None available Indication: Code stroke, altered mental status, effusion Technique: 5 mm axial images of the head were obtained without contrast. Findings: There is low attenuation within the periventricular white matter consistent with chronic small vessel ischemic disease. Prominence of cortical sulci and ventricular system is noted. There is cerebral atrophy. Midline structures are central. No hydrocephalus. No suspicious cerebral edema. No mass lesion or midline shift is seen. No extra axial fluid collection, intracranial hemorrhage or acute ischemia is detected. The visualized paranasal sinuses and mastoid air cells are clear. The osseous calvarium appears unremarkable. Impression: 1.Chronic small vessel ischemic disease and cerebral atrophy. 2.No acute findings. PQRS Compliance Statement: One or more of the following individualized dose reduction techniques were utilized for this examination: 1. Automated exposure control 2. Adjustment of the mA and/or kV according to patient size 3. Use of iterative reconstruction technique Electronically signed by: Johanna Hu MD (09/22/2020 11:00 AM) [facility] DICTATED and SIGNED BY: JOHANNA HU MD DATE: 09/22/20 [id number] 0 VTE Prophylaxis Ordered VTE Prophylaxis Devices: No VTE Pharmacological Prophylaxi: Yes Assessment/Plan Assessment/Plan IMPRESSION Episode of confusion upon awakening this AM ? TIA vs CVA, now has improved in ER Chronic small vessel ischemic disease and cerebral atrophy. No acute findings. on CT HEAD 09-22 ALTERED mentation, now improving fall with head injury last week , possible concussion syndrome mild -moderate protein-caloric malnutrition Possible new onset dementia hypertension hyperlipidemia osteoarthritis PLAN admit Neurology consult need recent records [facility] Health blood and urine cultures neurochecks q 4 hrs dvt prophylaxis home meds fall precautions Justifications for Admission Other Justification MARIA DEL ROSARIO VALENTIN MD Sep 22, 2020 13:57
--- NOTE | 2020-09-22 14:31 | EKG ---
[facility] [address] [place] [address] Test Date: 2020-09-22 Test Time: 11:01:06 Pat Name: YAMILA MUIR Department: Room: Gender: F Raise Miner: : 1935 Requested By: VALERIA MARTEL Order Number: [id number] Reading MD: Measurements Intervals [place] Rate: 78 P: DC: QRS: 40 QRSD: 100 T: 60 QT: 412 QTc: 474 Interpretive Statements IRREGULAR RHYTHM, NO P-WAVE FOUND OTHERWISE NORMAL ECG RI6.02 No previous ECG available for comparison
[2020-09-22] MEDS ORDERED: ONDANSETRON PF 4 MG/2 ML VIAL. IV PRN (15:15)
[2020-09-22] MEDS ORDERED: ACETAMINOPHEN 325 MG TABLET. PO PRN (15:15)
[2020-09-22] MEDS ORDERED: DOCUSATE SODIUM 100 MG CAPSULE. PO PRN (15:15)
[2020-09-22] MEDS ORDERED: 0.9 % SODIUM CHLORIDE 10 ML DISP.SYRIN. IV PRN (15:15)
[2020-09-22] MEDS ORDERED: MAG HYDROX/ALUMINUM HYD/SIMETH 30 ML ORAL.SUSP PO PRN (15:15)
[2020-09-22] MEDS ORDERED: guaiFENesin ORAL 200 MG/10 ML LIQUID. PO PRN (15:15)
[2020-09-22] MEDS ORDERED: SODIUM PHOSPHATES 19/7GM 133 ML ENEMA. PR PRN (15:15)
[2020-09-22] MEDS ORDERED: ALBUTEROL SULFATE 2.5 MG/3 ML NEBU. NEB PRN (15:15)
[2020-09-22] MEDS: CALCIUM CARB/VIT D3 500/200 TABLET. PO SCH (17:00)
[2020-09-22] MEDS: CARVEDILOL 6.25 MG TABLET. PO SCH (17:00)
[2020-09-22 17:20] VITALS: BP 180/78
[2020-09-22] MEDS: IV NORMAL SALINE 1000ML BAG 1,000 ML IV SCH (18:15)
[2020-09-22 19:00] VITALS: BP 164/70
[2020-09-22] MEDS: ENOXAPARIN 40 MG/0.4 ML SYRINGE. SQ SCH (21:07)
[2020-09-22 23:03] VITALS: BP 168/74
[2020-09-23 02:41] VITALS: BP 166/69
[2020-09-23 04:10] LABS: CHOLESTEROL/HDL RATIO 3.5
[2020-09-23 07:00] VITALS: BP 167/73
--- NOTE | 2020-09-23 07:57 | PDOC ---
[employer] PROGRESS NOTE Date of Service DOS: DATE: 09/23/20 TIME: 07:51 Chief Complaint Chief Complaint A/P: Acute encephalopathy - no focal neuro deficits. possibly post-concussion syndrome, metabolic. Light during day, frequent redirection HTN - prn hydralazine HLD - Statin FEN - NPO pending [employer] evaluation PPX - lovenox FULL CODE Dispo - inpatient blood and urine cultures neurochecks q 4 hrs dvt prophylaxis home meds fall precautions History of Present Illness History of Present Illness Ms Cramer is an 84 yo F w/ PMHx HTN, HLD who fell last week, with head injury was discharged from [facility] ? yesterday, poor historian for exact details, went home and " stayed up too late talking to her sister " awoke confused, family called EMS. on arrival here was confused, seen by Dr Mcmahon who was concerned for new onset AMS. Admitted and consulted Neurology, culture blood and urine, neurochecks q 4 hrs, fall precautions Afebrile. Was coughing after thin liquids this morning. Still confused also hard of hearing. She is slow to follow commands with all 4 extremities well. Friend is visiting today since patient does seem a little "out of it". Vitals/I&O Vitals/I&O: Vital Signs Date Time Temp Pulse Resp B/P (MAP) Pulse Ox O2 Delivery O2 Flow Rate FiO2 09/23/20 07:00 98.1 68 16 167/73 (104) 96 Room Air 98.1 I & O 09/22/20 09/22/20 09/23/20 15:00 23:00 07:00 Intake Total 0 ml Output Total 800 ml Balance -800 ml Physical Exam General: Oriented X3, Cooperative, No acute distress Abdomen: Normal bowel sounds, Soft Extremities: No clubbing, No cyanosis, No edema Skin: No breakdown, No significant lesion Labs Labs: Laboratory Tests Test 09/22/20 11:30 09/22/20 11:58 09/22/20 12:10 09/22/20 12:34 White Blood Count 8.7 x10^3/uL (4.0-11.0) Red Blood Count 4.24 x10^6/uL (3.50-5.40) Hemoglobin 12.7 g/dL (12.0-15.5) Hematocrit 37.4 % (36.0-47.0) Mean Corpuscular Volume 88 fL (79-100) Mean Corpuscular Hemoglobin 30 pg (25-35) Mean Corpuscular Hemoglobin Concent 34 g/dL (31-37) Red Cell Distribution Width 15.2 % (11.5-14.5) Platelet Count 460 x10^3/uL (140-400) Neutrophils (%) (Auto) 76 % (31-73) Lymphocytes (%) (Auto) 16 % (24-48) Monocytes (%) (Auto) 7 % (0-9) Eosinophils (%) (Auto) 0 % (0-3) Basophils (%) (Auto) 1 % (0-3) Neutrophils # (Auto) 6.6 x10^3/uL (1.8-7.7) Lymphocytes # (Auto) 1.4 x10^3/uL (1.0-4.8) Monocytes # (Auto) 0.6 x10^3/uL (0.0-1.1) Eosinophils # (Auto) 0.0 x10^3/uL (0.0-0.7) Basophils # (Auto) 0.1 x10^3/uL (0.0-0.2) Urine Collection Type U cath Urine Color Yellow Urine Clarity Clear Urine pH 6.0 (<5.0-8.0) Urine Specific [place] 1.015 (1.000-1.030) Urine Protein Negative mg/dL (NEG-TRACE) Urine Glucose (UA) Negative mg/dL (NEG) Urine Ketones (Stick) Negative mg/dL (NEG) Urine Blood Negative (NEG) Urine Nitrite Negative (NEG) Urine Bilirubin Negative (NEG) Urine Urobilinogen Dipstick 0.2 mg/dL (0.2 mg/dL) Urine Leukocyte Esterase Negative (NEG) Urine RBC Occ /HPF (0-2) Urine WBC Occ /HPF (0-4) Urine Squamous Epithelial Cells Occ /LPF Urine Bacteria 0 /HPF (0-FEW) Urine Hyaline Casts Few /HPF Urine Mucus Slight /LPF Sodium Level 142 mmol/L (136-145) Potassium Level 3.8 mmol/L (3.5-5.1) Chloride Level 107 mmol/L (98-107) Carbon Dioxide Level 27 mmol/L (21-32) Anion Gap 8 (6-14) Blood Urea Nitrogen 18 mg/dL (7-20) Creatinine 0.8 mg/dL (0.6-1.0) Estimated GFR (Cockcroft-Gault) 68.3 BUN/Creatinine Ratio 23 (6-20) Glucose Level 96 mg/dL (70-99) Calcium Level 8.7 mg/dL (8.5-10.1) Magnesium Level 1.9 mg/dL (1.8-2.4) Total Bilirubin 0.6 mg/dL (0.2-1.0) Aspartate Amino Transf (AST/SGOT) 18 U/L (15-37) Alanine Aminotransferase (ALT/SGPT) 18 U/L (14-59) Alkaline Phosphatase 58 U/L (46-116) Troponin I Quantitative < 0.017 ng/mL (0.000-0.055) Total Protein 5.8 g/dL (6.4-8.2) Albumin 2.9 g/dL (3.4-5.0) Albumin/Globulin Ratio 1.0 (1.0-1.7) Prothrombin Time 12.2 SEC (11.7-14.0) Prothromb Time International Ratio 0.9 (0.8-1.1) Activated Partial Thromboplast Time 26 SEC (24-38) Thyroid Stimulating Hormone (TSH) 2.351 uIU/mL (0.358-3.74) Test 09/23/20 03:30 Triglycerides Level 94 mg/dL (0-150) Cholesterol Level 212 mg/dL (0-200) LDL Cholesterol, Calculated 132 mg/dL (0-100) VLDL Cholesterol, Calculated 19 mg/dL (0-40) Non-HDL Cholesterol Calculated 151 mg/dL (0-129) HDL Cholesterol 61 mg/dL (40-60) Cholesterol/HDL Ratio 3.5 Assessment and Plan Assessmemt and Plan Problems Medical Problems: (1) AMS (altered mental status) Status: Acute (2) Dementia Status: Acute Comment Review of Relevant I have reviewed the following items roxy (where applicable) has been applied. Medications: Current Medications Medications (Trade) Dose Ordered Sig/Lawanda Route PRN Reason Start Time Stop Time Status Last Admin Dose Admin Sodium Chloride 1,000 ml @ 70 mls/hr [id number] IV 09/22/20 15:15 09/22/20 18:15 Enoxaparin Sodium (Lovenox 40mg Syringe) 40 mg Q24H SQ 09/22/20 21:00 09/22/20 21:07 Images: CT head There is low attenuation within the periventricular white matter consistent with chronic small vessel ischemic disease. Prominence of cortical sulci and ventricular system is noted. There is cerebral atrophy. Midline structures are central. No hydrocephalus. No suspicious cerebral edema. No mass lesion or midline shift is seen. No extra axial fluid collection, intracranial hemorrhage or acute ischemia is detected. The visualized paranasal sinuses and mastoid air cells are clear. The osseous calvarium appears unremarkable. Impression: 1.Chronic small vessel ischemic disease and cerebral atrophy. 2.No acute findings. Justifications for Admission Other Justification ALTERED MENTAL STATUS, RECENT CONCUSSION JORGE ALBERTO SAINI MD Sep 23, 2020 07:57
[2020-09-23] MEDS: CARVEDILOL 6.25 MG TABLET. PO SCH ×2 (08:00→14:19)
[2020-09-23] MEDS: CALCIUM CARB/VIT D3 500/200 TABLET. PO SCH ×2 (08:00→14:19)
[2020-09-23] MEDS: MULTIVITAMIN with MINERAL TABLET. PO SCH (08:02)
[2020-09-23] MEDS: IV NORMAL SALINE 1000ML BAG 1,000 ML IV SCH (08:02)
[2020-09-23 11:03] VITALS: BP 170/63
[2020-09-23] MEDS: hydrALAZINE 20 MG/ML VIAL. IVP PRN (11:41)
[2020-09-23] MEDS: AMINO AC 3%/ELECTROLYTE/GLYCER 1,000 ML IV SCH ×2 (12:35→23:47)
[2020-09-23 15:00] VITALS: BP 169/77
--- NOTE | 2020-09-23 17:10 | PDOC2 ---
NEUROLOGY CONSULT Date of Service DOS: Full Report Dictated Mirna Cramer is an 84-year-old woman with underlying dementia. According to nursing staff she functions very well at home usually able to have conversations and take care of most of her needs. She had recently been admitted to [facility] and discharged. Her friend went to check on her and found her extremely confused. She has remained confused. CT scan of the head was not revealing. No obvious source of infection. No major blood work abnormality. I will order an MRI brain and further labs for September 24, 2020. DATE: 09/23/20 TIME: 17:08 Current Medications Current Medications Current Medications Sodium Chloride (Normal Saline Flush) 3 ml QSHIFT PRN IV AFTER MEDS AND BLOOD DRAWS; Start 09/22/20 at 15:15 Sodium Chloride 1,000 ml @ 70 mls/hr [id number] IV Last administered on 09/23/20at 08:02; Start 09/22/20 at 15:15; Stop 09/23/20 at 11:34; Status DC Ondansetron HCl (Zofran) 4 mg PRN Q4HRS PRN IV NAUSEA/VOMITING; Start 09/22/20 at 15:15 Acetaminophen (Tylenol) 650 mg PRN Q4HRS PRN PO TEMP OVER 100.4F OR MILD PAIN; Start 09/22/20 at 15:15 Al Hydroxide/Mg Hydroxide (Mylanta Plus Xs) 30 ml PRN DAILY PRN PO HEARTBURN / GAS; Start 09/22/20 at 15:15 Sodium Monofluorophosphate (Fleet Adult) 133 ml PRN DAILY PRN SC CONSTIPATION; Start 09/22/20 at 15:15; Stop 09/23/20 at 11:34; Status DC Docusate Sodium (Colace) 100 mg PRN BID PRN PO HARD STOOLS; Start 09/22/20 at 15:15 Albuterol Sulfate (Ventolin Neb Soln) 2.5 mg PRN Q4HRS PRN NEB SHORTNESS OF DORCAS ATH; Start 09/22/20 at 15:15 Guaifenesin (Robitussin) 200 mg PRN Q4HRS PRN PO COUGH; Start 09/22/20 at 15:15 Enoxaparin Sodium (Lovenox 40mg Syringe) 40 mg Q24H SQ Last administered on 09/22/20at 21:07; Start 09/22/20 at 21:00 Amlodipine Besylate (Norvasc) 5 mg DAILY PO ; Start 09/23/20 at 09:00 Carvedilol (Coreg) 6.25 mg BIDWMEALS PO ; Start 09/22/20 at 17:00 Calcium/Vitamin D (Oscal D 500mg/ 200uts) 1 tab BIDWMEALS PO ; Start 09/22/20 at 17:00 Multivitamins (Thera M Plus) 1 tab DAILY PO ; Start 09/23/20 at 09:00 Hydralazine HCl (Apresoline Inj) 10 mg PRN Q4HRS PRN IVP ELEVATED BP, SEE COMMENTS Last administered on 09/23/20at 11:41; Start 09/23/20 at 11:45 Olanzapine (ZyPREXA ZYDIS) 5 mg PRN BID PRN PO ANXIETY / AGITATION Last administered on 09/23/20at 14:16; Start 09/23/20 at 11:45 Amino Acids/ Glycerin/ Electrolytes 1,000 ml @ 80 mls/hr [id number] IV Last administered on 09/23/20at 12:35; Start 09/23/20 at 12:15 Active Scripts Active Reported Tums Ultra Strength (Calcium Carbonate) 1,177 Mg Tab.chew 1,177 Mg PO PRN PRN Potassium Chloride 10 Meq Tablet.er 10 Meq PO DAILY Carvedilol (Carvedilol) 6.25 Mg Tablet 1 Tab PO BID Calcium + D Soft Chewable Tab (Ca Carbonate/Vitamin D3/Vit K) 1 Each Tab.chew 1 Each PO Centrum Silver Tablet (Multivits-Min/Fa/Lycopene/Lut) 1 Each Tablet 1 Each PO Acetaminophen 500 Mg Tablet 500 Mg PO Amlodipine Besylate 5 Mg Tablet 1 Tab PO DAILY Allergies Allergies: Coded Allergies: ibuprofen (Verified Allergy, Intermediate, Hives, 01/04/14) cimetidine (Verified Adverse Reaction, Intermediate, 09/23/20) Blacks out pregabalin (Verified Adverse Reaction, Intermediate, Photosensitivity, 09/23/20) Vitals VITALS Vital Signs Date Time Temp Pulse Resp B/P (MAP) Pulse Ox O2 Delivery O2 Flow Rate FiO2 09/23/20 15:00 98.3 76 18 169/77 (107) 94 Room Air 98.3 Labs Labs Laboratory Tests Test 09/22/20 11:30 09/22/20 11:58 09/22/20 12:10 09/22/20 12:34 White Blood Count 8.7 x10^3/uL (4.0-11.0) Red Blood Count 4.24 x10^6/uL (3.50-5.40) Hemoglobin 12.7 g/dL (12.0-15.5) Hematocrit 37.4 % (36.0-47.0) Mean Corpuscular Volume 88 fL (79-100) Mean Corpuscular Hemoglobin 30 pg (25-35) Mean Corpuscular Hemoglobin Concent 34 g/dL (31-37) Red Cell Distribution Width 15.2 % (11.5-14.5) Platelet Count 460 x10^3/uL (140-400) Neutrophils (%) (Auto) 76 % (31-73) Lymphocytes (%) (Auto) 16 % (24-48) Monocytes (%) (Auto) 7 % (0-9) Eosinophils (%) (Auto) 0 % (0-3) Basophils (%) (Auto) 1 % (0-3) Neutrophils # (Auto) 6.6 x10^3/uL (1.8-7.7) Lymphocytes # (Auto) 1.4 x10^3/uL (1.0-4.8) Monocytes # (Auto) 0.6 x10^3/uL (0.0-1.1) Eosinophils # (Auto) 0.0 x10^3/uL (0.0-0.7) Basophils # (Auto) 0.1 x10^3/uL (0.0-0.2) Urine Collection Type U cath Urine Color Yellow Urine Clarity Clear Urine pH 6.0 (<5.0-8.0) Urine Specific [place] 1.015 (1.000-1.030) Urine Protein Negative mg/dL (NEG-TRACE) Urine Glucose (UA) Negative mg/dL (NEG) Urine Ketones (Stick) Negative mg/dL (NEG) Urine Blood Negative (NEG) Urine Nitrite Negative (NEG) Urine Bilirubin Negative (NEG) Urine Urobilinogen Dipstick 0.2 mg/dL (0.2 mg/dL) Urine Leukocyte Esterase Negative (NEG) Urine RBC Occ /HPF (0-2) Urine WBC Occ /HPF (0-4) Urine Squamous Epithelial Cells Occ /LPF Urine Bacteria 0 /HPF (0-FEW) Urine Hyaline Casts Few /HPF Urine Mucus Slight /LPF Sodium Level 142 mmol/L (136-145) Potassium Level 3.8 mmol/L (3.5-5.1) Chloride Level 107 mmol/L (98-107) Carbon Dioxide Level 27 mmol/L (21-32) Anion Gap 8 (6-14) Blood Urea Nitrogen 18 mg/dL (7-20) Creatinine 0.8 mg/dL (0.6-1.0) Estimated GFR (Cockcroft-Gault) 68.3 BUN/Creatinine Ratio 23 (6-20) Glucose Level 96 mg/dL (70-99) Calcium Level 8.7 mg/dL (8.5-10.1) Magnesium Level 1.9 mg/dL (1.8-2.4) Total Bilirubin 0.6 mg/dL (0.2-1.0) Aspartate Amino Transf (AST/SGOT) 18 U/L (15-37) Alanine Aminotransferase (ALT/SGPT) 18 U/L (14-59) Alkaline Phosphatase 58 U/L (46-116) Troponin I Quantitative < 0.017 ng/mL (0.000-0.055) Total Protein 5.8 g/dL (6.4-8.2) Albumin 2.9 g/dL (3.4-5.0) Albumin/Globulin Ratio 1.0 (1.0-1.7) Prothrombin Time 12.2 SEC (11.7-14.0) Prothromb Time International Ratio 0.9 (0.8-1.1) Activated Partial Thromboplast Time 26 SEC (24-38) Thyroid Stimulating Hormone (TSH) 2.351 uIU/mL (0.358-3.74) Test 09/23/20 03:30 Triglycerides Level 94 mg/dL (0-150) Cholesterol Level 212 mg/dL (0-200) LDL Cholesterol, Calculated 132 mg/dL (0-100) VLDL Cholesterol, Calculated 19 mg/dL (0-40) Non-HDL Cholesterol Calculated 151 mg/dL (0-129) HDL Cholesterol 61 mg/dL (40-60) Cholesterol/HDL Ratio 3.5 Laboratory Tests Test 09/23/20 03:30 Triglycerides Level 94 mg/dL (0-150) Cholesterol Level 212 mg/dL (0-200) LDL Cholesterol, Calculated 132 mg/dL (0-100) VLDL Cholesterol, Calculated 19 mg/dL (0-40) Non-HDL Cholesterol Calculated 151 mg/dL (0-129) HDL Cholesterol 61 mg/dL (40-60) Cholesterol/HDL Ratio 3.5 SUJATHA RODRIGUEZ MD Sep 23, 2020 17:10
[2020-09-23 19:00] VITALS: BP 168/96
[2020-09-23] MEDS: ENOXAPARIN 40 MG/0.4 ML SYRINGE. SQ SCH (21:07)
[2020-09-23 22:31] VITALS: BP 151/81
[2020-09-23] MEDS: HALOPERIDOL LACTATE 5 MG/ML VIAL. IVP PRN (22:56)
--- NOTE | 2020-09-23 23:05 | CONS ---
DATE OF CONSULTATION: 09/23/2020 REFERRING PHYSICIAN: Samson Linares MD REASON FOR CONSULTATION: Confusion. HISTORY OF PRESENT ILLNESS: The patient is an 84-year-old woman who was brought to [facility] Emergency Room by EMS due to confusion. She normally lives at home and takes care of most of her needs. A neighbor checks in on her periodically. She was recently at [facility] for medical problems, but was discharged home. When a neighbor checked on her, she found her to be extremely confused. Last known normal was not known. When she arrived in the Emergency Room she was not coherent. They did not find any lack of movement of the extremities. She was not consistently following commands. She underwent a negative CT scan of her head. PAST MEDICAL AND SURGICAL HISTORY: 1. Hyperlipidemia. 2. Hypertension. 3. Hip replacement. 4. Knee replacement. ALLERGIES: CIMETIDINE, IBUPROFEN, PREGABALIN. MEDICATIONS PRIOR TO ADMISSION: Tylenol as needed, amlodipine 5 mg, calcium with vitamin D, carvedilol 6.25 mg twice per day, multivitamins and potassium chloride 10 mEq extended release daily. FAMILY HISTORY: Positive for heart disease and hypertension. SOCIAL HISTORY: She is a lifelong nonsmoker and does not drink alcohol. She lives alone. REVIEW OF SYSTEMS: She is not a reliable historian. She complains of leg pain, but cannot tell me which leg. She does not complain of shortness of breath, cough or cold. She complains of having to urinate, although the nurse reports she has attempted this several times, but has not been entirely successful. PHYSICAL EXAMINATION: VITAL SIGNS: The blood pressure was 169/77, pulse 76, respirations 18, temperature 98.3 degrees Fahrenheit orally. Oximetry was 94% on room air. Her weight was 54.5 kilograms, height 60 inches with a calculated body mass index of 23.5. She was in her bed, struggling to move about. NEUROLOGIC: She was awake and alert. She was not oriented in the slightest. Mid sore on her hands because she was removing all of her IVs and EKG leads. She was able to look at the examiner. She did not respond to visual threat, whatsoever, in any visual field. Oculocephalic reflex was intact. Pupils were 4 mm. She could not cooperate for funduscopic exam. Facial sensation appeared intact. Muscles of facial mastication and facial expression were powerful symmetrically. She did respond to loud noise. Tongue was midline. She is able to move her tongue. Muscle bulk was symmetrically diminished. Tone was not spastic or rigid. When I held her arms in the air, they would come down symmetrically, but quickly. She would not keep them in the air for very long. She did not appear to have focal weakness. Reflexes were 2/4 in the upper extremities and diminished at the knees, absent at the ankles. Toes were not upgoing. Coordination testing with finger to nose was not possible. She could not follow commands well enough. She reported that she could not perceive sharp sensation anywhere on her body. Gait was not testable. She was able to pivot transfer to her commode with the assistance of one. NECK: Auscultation of the carotid arteries did not reveal a bruit. CARDIOVASCULAR: Heart rhythm did appear irregular. EXTREMITIES: Peripheral pulses were symmetric in the feet. There was no edema or cyanosis. LABORATORY RESULTS: CBC revealed a normal white blood cell count, hemoglobin, hematocrit, but elevated platelet count at 460. Chemistries were performed on 09/22 and 09/23/2020. The electrolytes were normal. BUN, creatinine, and glucose were normal. The GFR calculated at 68.3. Calcium and magnesium were normal. The liver enzymes were not elevated. Troponin was not elevated. Total protein was diminished at 5.8 and albumin at 2.9. TSH was normal. Lipid profile was performed on 09/23/2020 revealing total cholesterol at 212, triglycerides were 94, HDL was 61, LDL 132 and VLDL 19. The cholesterol/HDL ratio was 3.5. Urinalysis was performed by catheterization on 09/22/2020 revealing occasional white cells and red cells and occasional squamous epithelial cells and a few hyaline casts without bacteria. PT/INR was 0.9 and PTT was 26. DIAGNOSTIC RESULTS: CT scan of the brain was performed without contrast on 09/22/2020. This revealed chronic small vessel ischemic disease and atrophy, but no acute findings. IMPRESSION: The patient is an 84-year-old woman who became acutely confused after a hospitalization. The cause of this is not entirely clear. She does not have an obvious source of infection. She does appear encephalopathic. I do not see a specific focal findings that would suggest stroke, although stroke can occur in the right hemisphere, provoking confusion, without necessarily focal findings. RECOMMENDATIONS: We will arrange for an MRI brain for 09/24/2020 to better evaluate for stroke. We will order further labs looking for deficiency states. We will do some labs looking for inflammation as well. She will need to be activated. I appreciate being involved in her care. LUNA/CHASE DR: Jaden TID: [id number] CC: DALIA SPENCER MD
[2020-09-24 02:55] VITALS: BP 141/61
[2020-09-24 06:10] LABS: BASO # 0.1 x10^3/uL (0.0-0.2); BASO % 1 % (0-3); EOS % 0 % (0-3); HEMATOCRIT 40.6 % (36.0-47.0); HEMOGLOBIN 13.5 g/dL (12.0-15.5); LYMPH # 1.2 x10^3/uL (1.0-4.8); LYMPH % 13 % (24-48); MEAN CORPUSCULAR HEMOGLOBIN 29 pg (25-35); MEAN CORPUSCULAR HGB CONC 33 g/dL (31-37); MEAN CORPUSCULAR VOLUME 88 fL (79-100); MONO # 0.8 x10^3/uL (0.0-1.1); MONO % 9 % (0-9); NEUT # 6.9 x10^3/uL (1.8-7.7); NEUT % 77 % (31-73); PLATELET COUNT 450 x10^3/uL (140-400); RED BLOOD COUNT 4.59 x10^6/uL (3.50-5.40)
[2020-09-24 06:37] LABS: ALBUMIN 2.8 g/dL (3.4-5.0); ALBUMIN/GLOBULIN RATIO 0.8 (1.0-1.7); CALCIUM 8.7 mg/dL (8.5-10.1); CREATININE 0.7 mg/dL (0.6-1.0); GFR 79.7; POTASSIUM 3.8 mmol/L (3.5-5.1); TOTAL PROTEIN 6.1 g/dL (6.4-8.2)
[2020-09-24 07:00] VITALS: BP 113/94
[2020-09-24] MEDS: CALCIUM CARB/VIT D3 500/200 TABLET. PO SCH ×2 (07:32→17:26)
[2020-09-24] MEDS: CARVEDILOL 6.25 MG TABLET. PO SCH ×2 (07:32→17:26)
[2020-09-24] MEDS: MULTIVITAMIN with MINERAL TABLET. PO SCH (07:33)
--- NOTE | 2020-09-24 09:07 | PDOC ---
PROGRESS NOTES Date of Service DATE: 09/24/20 TIME: 09:02 Assessment Problems Medical Problems: (1) AMS (altered mental status) Status: Acute (2) Dementia Status: Acute Dementia, at baseline, lives alone. Possible postconcussion syndrome No obvious metabolic issues such as urinary tract infection N.p.o., awaiting speech evaluation Hypertension, hyperlipidemia Plan Await MRI Await lab work Subjective Denies headache Objective Vital Signs Date Time Temp Pulse Resp B/P (MAP) Pulse Ox O2 Delivery O2 Flow Rate FiO2 09/24/20 07:00 98.5 100 16 113/94 (100) 94 Room Air 98.5 Intake and Output 09/24/20 07:00 Intake Total 600 ml Output Total 2700 ml Balance -2100 ml Intake Oral 0 ml Blood Product IV Normal Saline Flush 600 ml Output Urine Total 2700 ml PHYSICAL EXAM Alert, knows name, not date or location PERRL. EOMI. CN: no focal findings. Muscle tone: normal. Muscle strength: 4/5 DTR: 1+ Plantar reflex: Flexor Bilateral grasp reflexes Gait: not examined in bed. Sensory exam: no abnormal findings. No cerebellar signs elicited. Review of Relevant I have reviewed the following items roxy (where applicable) has been applied. Labs Laboratory Tests Test 09/22/20 11:30 09/22/20 11:58 09/22/20 12:10 09/22/20 12:34 White Blood Count 8.7 x10^3/uL (4.0-11.0) Red Blood Count 4.24 x10^6/uL (3.50-5.40) Hemoglobin 12.7 g/dL (12.0-15.5) Hematocrit 37.4 % (36.0-47.0) Mean Corpuscular Volume 88 fL (79-100) Mean Corpuscular Hemoglobin 30 pg (25-35) Mean Corpuscular Hemoglobin Concent 34 g/dL (31-37) Red Cell Distribution Width 15.2 % (11.5-14.5) Platelet Count 460 x10^3/uL (140-400) Neutrophils (%) (Auto) 76 % (31-73) Lymphocytes (%) (Auto) 16 % (24-48) Monocytes (%) (Auto) 7 % (0-9) Eosinophils (%) (Auto) 0 % (0-3) Basophils (%) (Auto) 1 % (0-3) Neutrophils # (Auto) 6.6 x10^3/uL (1.8-7.7) Lymphocytes # (Auto) 1.4 x10^3/uL (1.0-4.8) Monocytes # (Auto) 0.6 x10^3/uL (0.0-1.1) Eosinophils # (Auto) 0.0 x10^3/uL (0.0-0.7) Basophils # (Auto) 0.1 x10^3/uL (0.0-0.2) Urine Collection Type U cath Urine Color Yellow Urine Clarity Clear Urine pH 6.0 (<5.0-8.0) Urine Specific [place] 1.015 (1.000-1.030) Urine Protein Negative mg/dL (NEG-TRACE) Urine Glucose (UA) Negative mg/dL (NEG) Urine Ketones (Stick) Negative mg/dL (NEG) Urine Blood Negative (NEG) Urine Nitrite Negative (NEG) Urine Bilirubin Negative (NEG) Urine Urobilinogen Dipstick 0.2 mg/dL (0.2 mg/dL) Urine Leukocyte Esterase Negative (NEG) Urine RBC Occ /HPF (0-2) Urine WBC Occ /HPF (0-4) Urine Squamous Epithelial Cells Occ /LPF Urine Bacteria 0 /HPF (0-FEW) Urine Hyaline Casts Few /HPF Urine Mucus Slight /LPF Sodium Level 142 mmol/L (136-145) Potassium Level 3.8 mmol/L (3.5-5.1) Chloride Level 107 mmol/L (98-107) Carbon Dioxide Level 27 mmol/L (21-32) Anion Gap 8 (6-14) Blood Urea Nitrogen 18 mg/dL (7-20) Creatinine 0.8 mg/dL (0.6-1.0) Estimated GFR (Cockcroft-Gault) 68.3 BUN/Creatinine Ratio 23 (6-20) Glucose Level 96 mg/dL (70-99) Calcium Level 8.7 mg/dL (8.5-10.1) Magnesium Level 1.9 mg/dL (1.8-2.4) Total Bilirubin 0.6 mg/dL (0.2-1.0) Aspartate Amino Transf (AST/SGOT) 18 U/L (15-37) Alanine Aminotransferase (ALT/SGPT) 18 U/L (14-59) Alkaline Phosphatase 58 U/L (46-116) Troponin I Quantitative < 0.017 ng/mL (0.000-0.055) Total Protein 5.8 g/dL (6.4-8.2) Albumin 2.9 g/dL (3.4-5.0) Albumin/Globulin Ratio 1.0 (1.0-1.7) Prothrombin Time 12.2 SEC (11.7-14.0) Prothromb Time International Ratio 0.9 (0.8-1.1) Activated Partial Thromboplast Time 26 SEC (24-38) Thyroid Stimulating Hormone (TSH) 2.351 uIU/mL (0.358-3.74) Test 09/23/20 03:30 09/24/20 05:50 Triglycerides Level 94 mg/dL (0-150) Cholesterol Level 212 mg/dL (0-200) LDL Cholesterol, Calculated 132 mg/dL (0-100) VLDL Cholesterol, Calculated 19 mg/dL (0-40) Non-HDL Cholesterol Calculated 151 mg/dL (0-129) HDL Cholesterol 61 mg/dL (40-60) Cholesterol/HDL Ratio 3.5 White Blood Count 9.0 x10^3/uL (4.0-11.0) Red Blood Count 4.59 x10^6/uL (3.50-5.40) Hemoglobin 13.5 g/dL (12.0-15.5) Hematocrit 40.6 % (36.0-47.0) Mean Corpuscular Volume 88 fL (79-100) Mean Corpuscular Hemoglobin 29 pg (25-35) Mean Corpuscular Hemoglobin Concent 33 g/dL (31-37) Red Cell Distribution Width 15.0 % (11.5-14.5) Platelet Count 450 x10^3/uL (140-400) Neutrophils (%) (Auto) 77 % (31-73) Lymphocytes (%) (Auto) 13 % (24-48) Monocytes (%) (Auto) 9 % (0-9) Eosinophils (%) (Auto) 0 % (0-3) Basophils (%) (Auto) 1 % (0-3) Neutrophils # (Auto) 6.9 x10^3/uL (1.8-7.7) Lymphocytes # (Auto) 1.2 x10^3/uL (1.0-4.8) Monocytes # (Auto) 0.8 x10^3/uL (0.0-1.1) Eosinophils # (Auto) 0.0 x10^3/uL (0.0-0.7) Basophils # (Auto) 0.1 x10^3/uL (0.0-0.2) Erythrocyte Sedimentation Rate 7 (0-25) Sodium Level 139 mmol/L (136-145) Potassium Level 3.8 mmol/L (3.5-5.1) Chloride Level 104 mmol/L (98-107) Carbon Dioxide Level 27 mmol/L (21-32) Anion Gap 8 (6-14) Blood Urea Nitrogen 15 mg/dL (7-20) Creatinine 0.7 mg/dL (0.6-1.0) Estimated GFR (Cockcroft-Gault) 79.7 BUN/Creatinine Ratio 21 (6-20) Glucose Level 109 mg/dL (70-99) Calcium Level 8.7 mg/dL (8.5-10.1) Total Bilirubin 1.0 mg/dL (0.2-1.0) Aspartate Amino Transf (AST/SGOT) 19 U/L (15-37) Alanine Aminotransferase (ALT/SGPT) 21 U/L (14-59) Alkaline Phosphatase 64 U/L (46-116) Ammonia < 10 mcmol/L (11-34) C-Reactive Protein, Quantitative 12.3 mg/L (0-3.3) Total Protein 6.1 g/dL (6.4-8.2) Albumin 2.8 g/dL (3.4-5.0) Albumin/Globulin Ratio 0.8 (1.0-1.7) Free Thyroxine 1.40 ng/dL (0.76-1.46) Laboratory Tests Test 09/24/20 05:50 White Blood Count 9.0 x10^3/uL (4.0-11.0) Red Blood Count 4.59 x10^6/uL (3.50-5.40) Hemoglobin 13.5 g/dL (12.0-15.5) Hematocrit 40.6 % (36.0-47.0) Mean Corpuscular Volume 88 fL (79-100) Mean Corpuscular Hemoglobin 29 pg (25-35) Mean Corpuscular Hemoglobin Concent 33 g/dL (31-37) Red Cell Distribution Width 15.0 % (11.5-14.5) Platelet Count 450 x10^3/uL (140-400) Neutrophils (%) (Auto) 77 % (31-73) Lymphocytes (%) (Auto) 13 % (24-48) Monocytes (%) (Auto) 9 % (0-9) Eosinophils (%) (Auto) 0 % (0-3) Basophils (%) (Auto) 1 % (0-3) Neutrophils # (Auto) 6.9 x10^3/uL (1.8-7.7) Lymphocytes # (Auto) 1.2 x10^3/uL (1.0-4.8) Monocytes # (Auto) 0.8 x10^3/uL (0.0-1.1) Eosinophils # (Auto) 0.0 x10^3/uL (0.0-0.7) Basophils # (Auto) 0.1 x10^3/uL (0.0-0.2) Erythrocyte Sedimentation Rate 7 (0-25) Sodium Level 139 mmol/L (136-145) Potassium Level 3.8 mmol/L (3.5-5.1) Chloride Level 104 mmol/L (98-107) Carbon Dioxide Level 27 mmol/L (21-32) Anion Gap 8 (6-14) Blood Urea Nitrogen 15 mg/dL (7-20) Creatinine 0.7 mg/dL (0.6-1.0) Estimated GFR (Cockcroft-Gault) 79.7 BUN/Creatinine Ratio 21 (6-20) Glucose Level 109 mg/dL (70-99) Calcium Level 8.7 mg/dL (8.5-10.1) Total Bilirubin 1.0 mg/dL (0.2-1.0) Aspartate Amino Transf (AST/SGOT) 19 U/L (15-37) Alanine Aminotransferase (ALT/SGPT) 21 U/L (14-59) Alkaline Phosphatase 64 U/L (46-116) Ammonia < 10 mcmol/L (11-34) C-Reactive Protein, Quantitative 12.3 mg/L (0-3.3) Total Protein 6.1 g/dL (6.4-8.2) Albumin 2.8 g/dL (3.4-5.0) Albumin/Globulin Ratio 0.8 (1.0-1.7) Free Thyroxine 1.40 ng/dL (0.76-1.46) Microbiology 09/23/20 Blood Culture - Preliminary, Resulted NO GROWTH AFTER 1 DAY Medications Current Medications Sodium Chloride (Normal Saline Flush) 3 ml QSHIFT PRN IV AFTER MEDS AND BLOOD DRAWS; Start 09/22/20 at 15:15 Sodium Chloride 1,000 ml @ 70 mls/hr [id number] IV Last administered on 09/23/20at 08:02; Start 09/22/20 at 15:15; Stop 09/23/20 at 11:34; Status DC Ondansetron HCl (Zofran) 4 mg PRN Q4HRS PRN IV NAUSEA/VOMITING; Start 09/22/20 at 15:15 Acetaminophen (Tylenol) 650 mg PRN Q4HRS PRN PO TEMP OVER 100.4F OR MILD PAIN; Start 09/22/20 at 15:15 Al Hydroxide/Mg Hydroxide (Mylanta Plus Xs) 30 ml PRN DAILY PRN PO HEARTBURN / GAS; Start 09/22/20 at 15:15 Sodium Monofluorophosphate (Fleet Adult) 133 ml PRN DAILY PRN TX CONSTIPATION; Start 09/22/20 at 15:15; Stop 09/23/20 at 11:34; Status DC Docusate Sodium (Colace) 100 mg PRN BID PRN PO HARD STOOLS; Start 09/22/20 at 15:15 Albuterol Sulfate (Ventolin Neb Soln) 2.5 mg PRN Q4HRS PRN NEB SHORTNESS OF B REATH; Start 09/22/20 at 15:15 Guaifenesin (Robitussin) 200 mg PRN Q4HRS PRN PO COUGH; Start 09/22/20 at 15:15 Enoxaparin Sodium (Lovenox 40mg Syringe) 40 mg Q24H SQ Last administered on 09/23/20at 21:07; Start 09/22/20 at 21:00 Amlodipine Besylate (Norvasc) 5 mg DAILY PO ; Start 09/23/20 at 09:00 Carvedilol (Coreg) 6.25 mg BIDWMEALS PO ; Start 09/22/20 at 17:00 Calcium/Vitamin D (Oscal D 500mg/ 200uts) 1 tab BIDWMEALS PO ; Start 09/22/20 at 17:00 Multivitamins (Thera M Plus) 1 tab DAILY PO ; Start 09/23/20 at 09:00 Hydralazine HCl (Apresoline Inj) 10 mg PRN Q4HRS PRN IVP ELEVATED BP, SEE COMMENTS Last administered on 09/23/20at 11:41; Start 09/23/20 at 11:45 Olanzapine (ZyPREXA ZYDIS) 5 mg PRN BID PRN PO ANXIETY / AGITATION Last administered on 09/23/20at 14:16; Start 09/23/20 at 11:45 Amino Acids/ Glycerin/ Electrolytes 1,000 ml @ 80 mls/hr [id number] IV Last administered on 09/23/20at 23:47; Start 09/23/20 at 12:15 Haloperidol Lactate (Haldol Inj) 5 mg PRN Q6HRS PRN IVP AGITATION Last administered on 09/23/20at 22:56; Start 09/23/20 at 21:00 Lorazepam (Ativan Inj) 1 mg PRN Q4HRS PRN IVP ANXIETY / AGITATION; Start 09/23/20 at 21:00 Active Scripts Active Reported Tums Ultra Strength (Calcium Carbonate) 1,177 Mg Tab.chew 1,177 Mg PO PRN PRN Potassium Chloride 10 Meq Tablet.er 10 Meq PO DAILY Carvedilol (Carvedilol) 6.25 Mg Tablet 1 Tab PO BID Calcium + D Soft Chewable Tab (Ca Carbonate/Vitamin D3/Vit K) 1 Each Tab.chew 1 Each PO Centrum Silver Tablet (Multivits-Min/Fa/Lycopene/Lut) 1 Each Tablet 1 Each PO Acetaminophen 500 Mg Tablet 500 Mg PO Amlodipine Besylate 5 Mg Tablet 1 Tab PO DAILY Vitals/I & O Vital Sign - Last 24 Hours 09/23/20 09/23/20 09/23/20 09/23/20 11:03 11:41 15:00 19:00 Temp 98.6 98.3 99.1 98.6 98.3 99.1 Pulse 69 69 76 96 Resp 16 18 18 B/P (MAP) 170/63 (98) 170/63 169/77 (107) 168/96 (120) Pulse Ox 97 94 92 O2 Delivery Room Air Room Air Room Air 09/23/20 09/23/20 09/24/20 09/24/20 19:54 22:31 02:55 07:00 Temp 97.5 97.5 98.5 97.5 97.5 98.5 Pulse 98 77 100 Resp 21 19 16 B/P (MAP) 151/81 (104) 141/61 (87) 113/94 (100) Pulse Ox 90 92 94 O2 Delivery Room Air Room Air Room Air Room Air Intake and Output 09/23/20 09/23/20 09/24/20 15:00 23:00 07:00 Intake Total 600 ml 0 ml Output Total 500 ml 1150 ml 1050 ml Balance -500 ml -550 ml -[address] head, 09/22 There is low attenuation within the periventricular white matter consistent with chronic small vessel ischemic disease. Prominence of cortical sulci and ventricular system is noted. There is cerebral atrophy. Midline structures are central. No hydrocephalus. No suspicious cerebral edema. No mass lesion or midline shift is seen. No extra axial fluid collection, intracranial hemorrhage or acute ischemia is detected. The visualized paranasal sinuses and mastoid air cells are clear. The osseous calvarium appears unremarkable. Impression: 1.Chronic small vessel ischemic disease and cerebral atrophy. 2.No acute findings. Justicifation of Admission Dx: Justifications for Admission: Justification of Admission Dx: N/A DALIA SPENCER MD Sep 24, 2020 09:07
--- NOTE | 2020-09-24 10:34 | PDOC ---
[facility] PROGRESS NOTE Date of Service DOS: DATE: 09/24/20 TIME: 10:21 Chief Complaint Chief Complaint A/P: Acute encephalopathy - no focal neuro deficits. possibly post-concussion syndrome, metabolic. Light during day, frequent redirection HTN - prn hydralazine HLD - Statin FEN - NPO pending ALTO SINGER evaluation PPX - lovenox FULL CODE Dispo - inpatient blood and urine cultures neurochecks q 4 hrs dvt prophylaxis home meds fall precautions History of Present Illness History of Present Illness 09/24/20 In bed awaiting brain MRI, no acute distress Not oriented to time or place, baseline mental status unknown Slowly responds to questions and commands Soler to bedside Discussed with nursing Ms Cramer is an 84 yo F w/ PMHx HTN, HLD who fell last week, with head injury was discharged from [facility] yesterday, poor historian for exact details, went home and " stayed up too late talking to her sister " awoke confused, family called EMS. on arrival here was confused, seen by Dr Mcmahon who was concerned for new onset AMS. Admitted and consulted Neurology, culture blood and urine, neurochecks q 4 hrs, fall precautions Afebrile. Was coughing after thin liquids this morning. Still confused also hard of hearing. She is slow to follow commands with all 4 extremities well. Friend is visiting today since patient does seem a little "out of it". Vitals/I&O Vitals/I&O: Vital Signs Date Time Temp Pulse Resp B/P (MAP) Pulse Ox O2 Delivery O2 Flow Rate FiO2 09/24/20 08:00 Room Air 09/24/20 07:00 98.5 100 16 113/94 (100) 94 98.5 I & O 09/23/20 09/23/20 09/24/20 15:00 23:00 07:00 Intake Total 600 ml 0 ml Output Total 500 ml 1150 ml 1050 ml Balance -500 ml -550 ml -1050 ml Physical Exam General: Alert, Cooperative, No acute distress Heart: Regular rate, No murmurs Lungs: Clear Abdomen: Normal bowel sounds, Soft Extremities: No clubbing, No cyanosis, No edema Skin: No breakdown, No significant lesion Labs Labs: Laboratory Tests Test 09/24/20 05:50 White Blood Count 9.0 x10^3/uL (4.0-11.0) Red Blood Count 4.59 x10^6/uL (3.50-5.40) Hemoglobin 13.5 g/dL (12.0-15.5) Hematocrit 40.6 % (36.0-47.0) Mean Corpuscular Volume 88 fL (79-100) Mean Corpuscular Hemoglobin 29 pg (25-35) Mean Corpuscular Hemoglobin Concent 33 g/dL (31-37) Red Cell Distribution Width 15.0 % (11.5-14.5) Platelet Count 450 x10^3/uL (140-400) Neutrophils (%) (Auto) 77 % (31-73) Lymphocytes (%) (Auto) 13 % (24-48) Monocytes (%) (Auto) 9 % (0-9) Eosinophils (%) (Auto) 0 % (0-3) Basophils (%) (Auto) 1 % (0-3) Neutrophils # (Auto) 6.9 x10^3/uL (1.8-7.7) Lymphocytes # (Auto) 1.2 x10^3/uL (1.0-4.8) Monocytes # (Auto) 0.8 x10^3/uL (0.0-1.1) Eosinophils # (Auto) 0.0 x10^3/uL (0.0-0.7) Basophils # (Auto) 0.1 x10^3/uL (0.0-0.2) Erythrocyte Sedimentation Rate 7 (0-25) Sodium Level 139 mmol/L (136-145) Potassium Level 3.8 mmol/L (3.5-5.1) Chloride Level 104 mmol/L (98-107) Carbon Dioxide Level 27 mmol/L (21-32) Anion Gap 8 (6-14) Blood Urea Nitrogen 15 mg/dL (7-20) Creatinine 0.7 mg/dL (0.6-1.0) Estimated GFR (Cockcroft-Gault) 79.7 BUN/Creatinine Ratio 21 (6-20) Glucose Level 109 mg/dL (70-99) Calcium Level 8.7 mg/dL (8.5-10.1) Total Bilirubin 1.0 mg/dL (0.2-1.0) Aspartate Amino Transf (AST/SGOT) 19 U/L (15-37) Alanine Aminotransferase (ALT/SGPT) 21 U/L (14-59) Alkaline Phosphatase 64 U/L (46-116) Ammonia < 10 mcmol/L (11-34) C-Reactive Protein, Quantitative 12.3 mg/L (0-3.3) Total Protein 6.1 g/dL (6.4-8.2) Albumin 2.8 g/dL (3.4-5.0) Albumin/Globulin Ratio 0.8 (1.0-1.7) Free Thyroxine 1.40 ng/dL (0.76-1.46) Treponema pallidum Antibody Nonreactive (Nonreactive) Review of Systems Review of Systems: HEENT: Denies cough or headache LUNGS: Denies shortness of breath HEART: Denies chest pain ABD: Denies abdominal pain, change in stool SKIN: Denies skin lesions Assessment and Plan Assessmemt and Plan Problems Medical Problems: (1) AMS (altered mental status) Status: Acute (2) Dementia Status: Acute 09/24/20 Altered Mental Status Dementia HTN HLD NPO pending speech therapy evaluation MRI brain PT/OT Trend labs Cardiac monitoring DVT prophylaxis Full code Appreciate subspecialist input Comment Review of Relevant I have reviewed the following items roxy (where applicable) has been applied. Medications: Current Medications Medications (Trade) Dose Ordered Sig/[place] Route PRN Reason Start Time Stop Time Status Last Admin Dose Admin Hydralazine HCl (Apresoline Inj) 10 mg PRN Q4HRS PRN IVP ELEVATED BP, SEE COMMENTS 09/23/20 11:45 09/23/20 11:41 Olanzapine (ZyPREXA ZYDIS) 5 mg PRN BID PRN PO ANXIETY / AGITATION 09/23/20 11:45 09/23/20 14:16 Amino Acids/ Glycerin/ Electrolytes 1,000 ml @ 80 mls/hr [id number] IV 09/23/20 12:15 09/23/20 23:47 Haloperidol Lactate (Haldol Inj) 5 mg PRN Q6HRS PRN IVP AGITATION 09/23/20 21:00 09/23/20 22:56 Justifications for Admission Other Justification ALTERED MENTAL STATUS, RECENT CONCUSSION ABENA WOOD III DO Sep 24, 2020 10:34
[2020-09-24 11:41] VITALS: BP 143/68
--- NOTE | 2020-09-24 11:49 | RAD ---
EXAM: Brain MRI without contrast. HISTORY: Confusion. TECHNIQUE: Multiplanar, multisequence magnetic resonance imaging of the brain was performed without c ontrast. COMPARISON: CT dated 09/22/2020. FINDINGS: There is no restricted diffusion to suggest acute or subacute infarction. There is a tiny s uspected acute or early subacute subdural hematoma along the right cerebral convexity. There is no ma ss effect or midline shift. There are extensive cerebral white matter changes, likely due to chronic small vessel disease. There is cerebral volume loss. The orbits are unremarkable. There is inferior right maxillary sinus mucosal thickening. There is min imal left mastoid fluid. There are normal flow voids within the cerebral vessels. There is no suspici ous calvarial lesion. IMPRESSION: 1. Tiny acute or early subacute subdural hematoma along the right cerebral convexity. There is no mas s effect or midline shift. 2. Extensive white matter changes, most commonly due to chronic small vessel disease. 3. Cerebral atrophy. Findings were discussed with Elda, the nurse caring for the patient, at 1140 hours on 09/24/2020. Electronically signed by: Nicki Garcia MD (09/24/2020 11:46 AM) [id number]
[2020-09-24] MEDS: HALOPERIDOL LACTATE 5 MG/ML VIAL. IVP PRN ×2 (13:12→20:31)
[2020-09-24 15:07] VITALS: BP 154/65
[2020-09-24] MEDS: AMINO AC 3%/ELECTROLYTE/GLYCER 1,000 ML IV SCH (17:26)
--- NOTE | 2020-09-24 19:24 | PDOC ---
Provider Note Date of Service: DATE: 09/24/20 TIME: 19:10 Provider Note NEUROSURGERY Patient seen at 1515 consulted for SDH awake, alert, confused, would not follow commands, [place] MRI with Tiny acute or early subacute subdural hematoma along the right cerebral convexity. There is no mass effect or midline shift. f/u CT ordered for tomorrow neurology following Justifications for Admission Other Justification ALTERED MENTAL STATUS, RECENT CONCUSSION XIMENA GRACIA MUSIC MIXER Sep 24, 2020 19:24
[2020-09-24] MEDS: ENOXAPARIN 40 MG/0.4 ML SYRINGE. SQ SCH (20:34)
[2020-09-24 22:47] VITALS: BP 150/69
[2020-09-25 03:09] VITALS: BP 182/70
[2020-09-25 07:00] VITALS: BP 158/70
[2020-09-25] MEDS: CARVEDILOL 6.25 MG TABLET. PO SCH ×2 (07:27→14:26)
[2020-09-25] MEDS: MULTIVITAMIN with MINERAL TABLET. PO SCH (07:27)
[2020-09-25] MEDS: CALCIUM CARB/VIT D3 500/200 TABLET. PO SCH (07:27)
[2020-09-25] MEDS: AMINO AC 3%/ELECTROLYTE/GLYCER 1,000 ML IV SCH ×2 (07:30→20:45)
[2020-09-25 08:15] LABS: CALCIUM 8.3 mg/dL (8.5-10.1); CREATININE 0.6 mg/dL (0.6-1.0); GFR 95.2; POTASSIUM 3.1 mmol/L (3.5-5.1)
[2020-09-25 08:16] LABS: BASO # 0.1 x10^3/uL (0.0-0.2); BASO % 2 % (0-3); EOS # 0.1 x10^3/uL (0.0-0.7); EOS % 1 % (0-3); HEMATOCRIT 39.6 % (36.0-47.0); HEMOGLOBIN 13.4 g/dL (12.0-15.5); LYMPH # 1.6 x10^3/uL (1.0-4.8); LYMPH % 20 % (24-48); MEAN CORPUSCULAR HEMOGLOBIN 30 pg (25-35); MEAN CORPUSCULAR HGB CONC 34 g/dL (31-37); MEAN CORPUSCULAR VOLUME 88 fL (79-100); MONO # 0.9 x10^3/uL (0.0-1.1); MONO % 11 % (0-9); NEUT # 5.1 x10^3/uL (1.8-7.7); NEUT % 66 % (31-73); PLATELET COUNT 395 x10^3/uL (140-400); RED BLOOD COUNT 4.49 x10^6/uL (3.50-5.40); RED CELL DISTRIBUTION WIDTH 15.2 % (11.5-14.5); WHITE BLOOD COUNT 7.8 x10^3/uL (4.0-11.0)
--- NOTE | 2020-09-25 10:21 | PDOC ---
PROGRESS NOTES Date of Service DATE: 09/25/20 TIME: 10:18 Assessment Problems Medical Problems: (1) AMS (altered mental status) Status: Acute (2) Dementia Status: Acute Small subdural hematoma of doubtful clinical significance, but it does imply that there is also a cerebral concussion. Dementia, at baseline, lives alone. Possible postconcussion syndrome No obvious metabolic issues such as urinary tract infection, additional labs are negative N.p.o., awaiting speech evaluation Hypertension, hyperlipidemia Plan Neurosurgery consultation appreciated, await repeat head CT Overall outlook is poor I left a message with the patient's daughter Subjective None Objective Vital Signs Date Time Temp Pulse Resp B/P (MAP) Pulse Ox O2 Delivery O2 Flow Rate FiO2 09/25/20 07:00 97.9 82 16 158/70 (99) 92 Room Air 97.9 Intake and Output 09/25/20 07:00 Intake Total 2000 ml Output Total 1400 ml Balance 600 ml Intake Oral 0 ml IV Total 2000 ml Output Urine Total 1400 ml PHYSICAL EXAM Drowsy, knows name, not date or location PERRL. EOMI. CN: no focal findings. Muscle tone: normal. Muscle strength: 4/5 DTR: 1+ Plantar reflex: Flexor Bilateral grasp reflexes Gait: not examined in bed. Sensory exam: no abnormal findings. No cerebellar signs elicited. Review of Relevant I have reviewed the following items roxy (where applicable) has been applied. Labs Laboratory Tests Test 09/24/20 05:50 09/25/20 07:20 White Blood Count 9.0 x10^3/uL (4.0-11.0) 7.8 x10^3/uL (4.0-11.0) Red Blood Count 4.59 x10^6/uL (3.50-5.40) 4.49 x10^6/uL (3.50-5.40) Hemoglobin 13.5 g/dL (12.0-15.5) 13.4 g/dL (12.0-15.5) Hematocrit 40.6 % (36.0-47.0) 39.6 % (36.0-47.0) Mean Corpuscular Volume 88 fL (79-100) 88 fL (79-100) Mean Corpuscular Hemoglobin 29 pg (25-35) 30 pg (25-35) Mean Corpuscular Hemoglobin Concent 33 g/dL (31-37) 34 g/dL (31-37) Red Cell Distribution Width 15.0 % (11.5-14.5) 15.2 % (11.5-14.5) Platelet Count 450 x10^3/uL (140-400) 395 x10^3/uL (140-400) Neutrophils (%) (Auto) 77 % (31-73) 66 % (31-73) Lymphocytes (%) (Auto) 13 % (24-48) 20 % (24-48) Monocytes (%) (Auto) 9 % (0-9) 11 % (0-9) Eosinophils (%) (Auto) 0 % (0-3) 1 % (0-3) Basophils (%) (Auto) 1 % (0-3) 2 % (0-3) Neutrophils # (Auto) 6.9 x10^3/uL (1.8-7.7) 5.1 x10^3/uL (1.8-7.7) Lymphocytes # (Auto) 1.2 x10^3/uL (1.0-4.8) 1.6 x10^3/uL (1.0-4.8) Monocytes # (Auto) 0.8 x10^3/uL (0.0-1.1) 0.9 x10^3/uL (0.0-1.1) Eosinophils # (Auto) 0.0 x10^3/uL (0.0-0.7) 0.1 x10^3/uL (0.0-0.7) Basophils # (Auto) 0.1 x10^3/uL (0.0-0.2) 0.1 x10^3/uL (0.0-0.2) Erythrocyte Sedimentation Rate 7 (0-25) Sodium Level 139 mmol/L (136-145) 142 mmol/L (136-145) Potassium Level 3.8 mmol/L (3.5-5.1) 3.1 mmol/L (3.5-5.1) Chloride Level 104 mmol/L (98-107) 105 mmol/L (98-107) Carbon Dioxide Level 27 mmol/L (21-32) 29 mmol/L (21-32) Anion Gap 8 (6-14) 8 (6-14) Blood Urea Nitrogen 15 mg/dL (7-20) 15 mg/dL (7-20) Creatinine 0.7 mg/dL (0.6-1.0) 0.6 mg/dL (0.6-1.0) Estimated GFR (Cockcroft-Gault) 79.7 95.2 BUN/Creatinine Ratio 21 (6-20) Glucose Level 109 mg/dL (70-99) 94 mg/dL (70-99) Calcium Level 8.7 mg/dL (8.5-10.1) 8.3 mg/dL (8.5-10.1) Total Bilirubin 1.0 mg/dL (0.2-1.0) Aspartate Amino Transf (AST/SGOT) 19 U/L (15-37) Alanine Aminotransferase (ALT/SGPT) 21 U/L (14-59) Alkaline Phosphatase 64 U/L (46-116) Ammonia < 10 mcmol/L (11-34) C-Reactive Protein, Quantitative 12.3 mg/L (0-3.3) Total Protein 6.1 g/dL (6.4-8.2) Albumin 2.8 g/dL (3.4-5.0) Albumin/Globulin Ratio 0.8 (1.0-1.7) Free Thyroxine 1.40 ng/dL (0.76-1.46) Treponema pallidum Antibody Nonreactive (Nonreactive) Laboratory Tests Test 09/25/20 07:20 White Blood Count 7.8 x10^3/uL (4.0-11.0) Red Blood Count 4.49 x10^6/uL (3.50-5.40) Hemoglobin 13.4 g/dL (12.0-15.5) Hematocrit 39.6 % (36.0-47.0) Mean Corpuscular Volume 88 fL (79-100) Mean Corpuscular Hemoglobin 30 pg (25-35) Mean Corpuscular Hemoglobin Concent 34 g/dL (31-37) Red Cell Distribution Width 15.2 % (11.5-14.5) Platelet Count 395 x10^3/uL (140-400) Neutrophils (%) (Auto) 66 % (31-73) Lymphocytes (%) (Auto) 20 % (24-48) Monocytes (%) (Auto) 11 % (0-9) Eosinophils (%) (Auto) 1 % (0-3) Basophils (%) (Auto) 2 % (0-3) Neutrophils # (Auto) 5.1 x10^3/uL (1.8-7.7) Lymphocytes # (Auto) 1.6 x10^3/uL (1.0-4.8) Monocytes # (Auto) 0.9 x10^3/uL (0.0-1.1) Eosinophils # (Auto) 0.1 x10^3/uL (0.0-0.7) Basophils # (Auto) 0.1 x10^3/uL (0.0-0.2) Sodium Level 142 mmol/L (136-145) Potassium Level 3.1 mmol/L (3.5-5.1) Chloride Level 105 mmol/L (98-107) Carbon Dioxide Level 29 mmol/L (21-32) Anion Gap 8 (6-14) Blood Urea Nitrogen 15 mg/dL (7-20) Creatinine 0.6 mg/dL (0.6-1.0) Estimated GFR (Cockcroft-Gault) 95.2 Glucose Level 94 mg/dL (70-99) Calcium Level 8.3 mg/dL (8.5-10.1) Microbiology 09/23/20 Blood Culture - Preliminary, Resulted NO GROWTH AFTER 2 DAYS Medications Current Medications Sodium Chloride (Normal Saline Flush) 3 ml QSHIFT PRN IV AFTER MEDS AND BLOOD DRAWS; Start 09/22/20 at 15:15 Sodium Chloride 1,000 ml @ 70 mls/hr [id number] IV Last administered on 09/23/20at 08:02; Start 09/22/20 at 15:15; Stop 09/23/20 at 11:34; Status DC Ondansetron HCl (Zofran) 4 mg PRN Q4HRS PRN IV NAUSEA/VOMITING; Start 09/22/20 at 15:15 Acetaminophen (Tylenol) 650 mg PRN Q4HRS PRN PO TEMP OVER 100.4F OR MILD PAIN; Start 09/22/20 at 15:15 Al Hydroxide/Mg Hydroxide (Mylanta Plus Xs) 30 ml PRN DAILY PRN PO HEARTBURN / GAS; Start 09/22/20 at 15:15 Sodium Monofluorophosphate (Fleet Adult) 133 ml PRN DAILY PRN [place] CONSTIPATION; Start 09/22/20 at 15:15; Stop 09/23/20 at 11:34; Status DC Docusate Sodium (Colace) 100 mg PRN BID PRN PO HARD STOOLS; Start 09/22/20 at 15:15 Albuterol Sulfate (Ventolin Neb Soln) 2.5 mg PRN Q4HRS PRN NEB SHORTNESS OF BREATH; Start 09/22/20 at 15:15 Guaifenesin (Robitussin) 200 mg PRN Q4HRS PRN PO COUGH; Start 09/22/20 at 15:15 Enoxaparin Sodium (Lovenox 40mg Syringe) 40 mg Q24H SQ Last administered on 09/23/20at 21:07; Start 09/22/20 at 21:00 Amlodipine Besylate (Norvasc) 5 mg DAILY PO ; Start 09/23/20 at 09:00 Carvedilol (Coreg) 6.25 mg BIDWMEALS PO ; Start 09/22/20 at 17:00 Calcium/Vitamin D (Oscal D 500mg/ 200uts) 1 tab BIDWMEALS PO ; Start 09/22/20 at 17:00 Multivitamins (Thera M Plus) 1 tab DAILY PO ; Start 09/23/20 at 09:00 Hydralazine HCl (Apresoline Inj) 10 mg PRN Q4HRS PRN IVP ELEVATED BP, SEE COMMENTS Last administered on 09/23/20at 11:41; Start 09/23/20 at 11:45 Olanzapine (ZyPREXA ZYDIS) 5 mg PRN BID PRN PO ANXIETY / AGITATION Last administered on 09/24/20at 19:02; Start 09/23/20 at 11:45 Amino Acids/ Glycerin/ Electrolytes 1,000 ml @ 80 mls/hr [id number] IV Last administered on 09/25/20at 07:30; Start 09/23/20 at 12:15 Haloperidol Lactate (Haldol Inj) 5 mg PRN Q6HRS PRN IVP AGITATION Last administ ered on 09/24/20at 20:31; Start 09/23/20 at 21:00 Lorazepam (Ativan Inj) 1 mg PRN Q4HRS PRN IVP ANXIETY / AGITATION Last adminis tered on 09/25/20at 08:58; Start 09/23/20 at 21:00 Active Scripts Active Reported Tums Ultra Strength (Calcium Carbonate) 1,177 Mg Tab.chew 1,177 Mg PO PRN PRN Potassium Chloride 10 Meq Tablet.er 10 Meq PO DAILY Carvedilol (Carvedilol) 6.25 Mg Tablet 1 Tab PO BID Calcium + D Soft Chewable Tab (Ca Carbonate/Vitamin D3/Vit K) 1 Each Tab.chew 1 Each PO Centrum Silver Tablet (Multivits-Min/Fa/Lycopene/Lut) 1 Each Tablet 1 Each PO Acetaminophen 500 Mg Tablet 500 Mg PO Amlodipine Besylate 5 Mg Tablet 1 Tab PO DAILY Vitals/I & O Vital Sign - Last 24 Hours 09/24/20 09/24/20 09/24/20 09/24/20 11:41 15:07 19:31 20:00 Temp 97.8 97.8 97.9 97.8 97.8 97.9 Pulse 89 94 129 Resp 14 20 20 B/P (MAP) 143/68 (93) 154/65 (94) Pulse Ox 96 95 97 O2 Delivery Room Air Room Air Room Air Room Air 09/24/20 09/25/20 09/25/20 22:47 03:09 07:00 Temp 97.7 97.8 97.9 97.7 97.8 97.9 Pulse 88 86 82 Resp 14 20 16 B/P (MAP) 150/69 (96) 182/70 (107) 158/70 (99) Pulse Ox 97 98 92 O2 Delivery Room Air Room Air Room Air Intake and Output 09/24/20 09/24/20 09/25/20 15:00 23:00 07:00 Intake Total 1000 ml 1000 ml 0 ml Output Total 400 ml 1000 ml Balance 1000 ml 600 ml -1000 ml Images Brain MRI without contrast. HISTORY: Confusion. TECHNIQUE: Multiplanar, multisequence magnetic resonance imaging of the brain was performed without contrast. COMPARISON: CT dated 09/22/2020. FINDINGS: There is no restricted diffusion to suggest acute or subacute infarction. There is a tiny suspected acute or early subacute subdural hematoma along the right cerebral convexity. There is no mass effect or midline shift. There are extensive cerebral white matter changes, likely due to chronic small vessel disease. There is cerebral volume loss. The orbits are unremarkable. There is inferior right maxillary sinus mucosal thickening. There is minimal left mastoid fluid. There are normal flow voids within the cerebral vessels. There is no suspicious calvarial lesion. IMPRESSION: 1. Tiny acute or early subacute subdural hematoma along the right cerebral convexity. There is no mass effect or midline shift. 2. Extensive white matter changes, most commonly due to chronic small vessel disease. 3. Cerebral atrophy. Justicifation of Admission Dx: Justifications for Admission: Justification of Admission Dx: N/A DALIA SPENCER MD Sep 25, 2020 10:21
[2020-09-25 11:00] VITALS: BP 129/67
--- NOTE | 2020-09-25 11:20 | RAD ---
EXAM: CT HEAD WITHOUT CONTRAST. HISTORY: Subdural hematoma. TECHNIQUE: Computed tomography of the head was performed without intravenous contrast. One or more of the following individualized dose reduction techniques were utilized for this examination: 1. Automated exposure control. 2. Adjustment of the mA and/or kV according to patient size. 3. Use of iterative reconstruction technique. COMPARISON: 09/22/2020 628.1. FINDINGS: The tiny right subdural collection noted on recent MRI is difficult to appreciate by CT. A small amount may be present along the right frontal pole on image 14 versus a subdural vein. There is no mass effect. Hypoattenuation within the white matter indicates moderate to severe chronic microan giopathic change. Prominence of the lateral ventricles and hemispheric sulci indicates mild atrophy f or patient age. The visualized paranasal sinuses appear clear. The orbits are unremarkable. The temporal bones are un remarkable. The calvarium reveals no suspicious lesions. There are atherosclerotic calcifications of the internal carotid and vertebral arteries. IMPRESSION: 1. The tiny right subdural collection noted on prior MRI is not appreciable by CT. No mass effect. 2. 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 Electronically signed by: Korin Cotton MD (09/25/2020 11:17 AM) [id number]
--- NOTE | 2020-09-25 12:06 | PDOC ---
[facility] PROGRESS NOTE Date of Service DOS: DATE: 09/25/20 TIME: 12:02 Chief Complaint Chief Complaint CC: Confusion Altered mental status Acute encephalopathy Subdural hematoma Dementia HTN HLD History of Present Illness History of Present Illness 09/25 Pt seen and examined. DW RN and DW case management. Pt is calm and resting when entering the room. Pt is pleasantly confused. Trying to get a hold of sister to communicate the situation of the pt and need for a hospice evaluation. 09/24/20 In bed awaiting brain MRI, no acute distress Not oriented to time or place, baseline mental status unknown Slowly responds to questions and commands Soler to bedside Discussed with nursing Ms Cramer is an 84 yo F w/ PMHx HTN, HLD who fell last week, with head injury [facility], poor historian for exact details, went home and " stayed up too late talking to her sister " awoke confused, family called EMS. on arrival here was confused, seen by Dr Mcmahon who was concerned for new onset AMS. Admitted and consulted Neurology, culture blood and urine, neurochecks q 4 hrs, fall precautions Afebrile. Was coughing after thin liquids this morning. Still confused also hard of hearing. She is slow to follow commands with all 4 extremities well. Friend is visiting today since patient does seem a little "out of it". Vitals/I&O Vitals/I&O: Vital Signs Date Time Temp Pulse Resp B/P (MAP) Pulse Ox O2 Delivery O2 Flow Rate FiO2 09/25/20 08:00 Room Air 09/25/20 07:00 97.9 82 16 158/70 (99) 92 97.9 I & O 09/24/20 09/24/20 09/25/20 15:00 23:00 07:00 Intake Total 1000 ml 1000 ml 0 ml Output Total 400 ml 1000 ml Balance 1000 ml 600 ml -1000 ml Physical Exam General: Alert, Cooperative, No acute distress, Other (Pt is not oriented. Pt is pleasantly confused.) Heart: Regular rate, No murmurs Lungs: Clear Abdomen: Normal bowel sounds, Soft Extremities: No clubbing, No cyanosis, No edema Skin: No breakdown, No significant lesion Labs Labs: Laboratory Tests Test 09/25/20 07:20 White Blood Count 7.8 x10^3/uL (4.0-11.0) Red Blood Count 4.49 x10^6/uL (3.50-5.40) Hemoglobin 13.4 g/dL (12.0-15.5) Hematocrit 39.6 % (36.0-47.0) Mean Corpuscular Volume 88 fL (79-100) Mean Corpuscular Hemoglobin 30 pg (25-35) Mean Corpuscular Hemoglobin Concent 34 g/dL (31-37) Red Cell Distribution Width 15.2 % (11.5-14.5) Platelet Count 395 x10^3/uL (140-400) Neutrophils (%) (Auto) 66 % (31-73) Lymphocytes (%) (Auto) 20 % (24-48) Monocytes (%) (Auto) 11 % (0-9) Eosinophils (%) (Auto) 1 % (0-3) Basophils (%) (Auto) 2 % (0-3) Neutrophils # (Auto) 5.1 x10^3/uL (1.8-7.7) Lymphocytes # (Auto) 1.6 x10^3/uL (1.0-4.8) Monocytes # (Auto) 0.9 x10^3/uL (0.0-1.1) Eosinophils # (Auto) 0.1 x10^3/uL (0.0-0.7) Basophils # (Auto) 0.1 x10^3/uL (0.0-0.2) Sodium Level 142 mmol/L (136-145) Potassium Level 3.1 mmol/L (3.5-5.1) Chloride Level 105 mmol/L (98-107) Carbon Dioxide Level 29 mmol/L (21-32) Anion Gap 8 (6-14) Blood Urea Nitrogen 15 mg/dL (7-20) Creatinine 0.6 mg/dL (0.6-1.0) Estimated GFR (Cockcroft-Gault) 95.2 Glucose Level 94 mg/dL (70-99) Calcium Level 8.3 mg/dL (8.5-10.1) Review of Systems Review of Systems: Denies abdominal pain. Denies Chest pain. Assessment and Plan Assessmemt and Plan Problems Medical Problems: (1) AMS (altered mental status) Status: Acute (2) Dementia Status: Acute Assessment: CC: Confusion Altered mental status Acute encephalopathy Subdural hematoma Dementia HTN HLD Plan: Hospice Evaluation Cardiac Monitoring Await further subspecialist input PT/OT DVT prophylaxis Continue Pain Management PRN Full Code Comment Review of Relevant I have reviewed the following items roxy (where applicable) has been applied. Justifications for Admission Other Justification ALTERED MENTAL STATUS, RECENT CONCUSSION ABENA WOOD III DO Sep 25, 2020 12:06
[2020-09-25 15:00] VITALS: BP 152/75
[2020-09-25 19:29] VITALS: BP 161/69
[2020-09-25 22:24] VITALS: BP 167/75
[2020-09-26] MEDS: AMINO AC 3%/ELECTROLYTE/GLYCER 1,000 ML IV SCH (02:45)
[2020-09-26 03:25] VITALS: BP 173/56
[2020-09-26] MEDS: hydrALAZINE 20 MG/ML VIAL. IVP PRN (03:34)
[2020-09-26 07:00] VITALS: BP 148/71
[2020-09-26] MEDS: CARVEDILOL 6.25 MG TABLET. PO SCH ×2 (08:00→17:38)
[2020-09-26 08:03] LABS: BASO # 0.1 x10^3/uL (0.0-0.2); BASO % 1 % (0-3); EOS # 0.2 x10^3/uL (0.0-0.7); EOS % 2 % (0-3); HEMATOCRIT 42.2 % (36.0-47.0); HEMOGLOBIN 14.1 g/dL (12.0-15.5); LYMPH # 1.6 x10^3/uL (1.0-4.8); LYMPH % 18 % (24-48); MEAN CORPUSCULAR HEMOGLOBIN 30 pg (25-35); MEAN CORPUSCULAR HGB CONC 34 g/dL (31-37); MEAN CORPUSCULAR VOLUME 88 fL (79-100); MONO # 0.7 x10^3/uL (0.0-1.1); MONO % 8 % (0-9); NEUT # 6.4 x10^3/uL (1.8-7.7); NEUT % 72 % (31-73); PLATELET COUNT 372 x10^3/uL (140-400); RED BLOOD COUNT 4.78 x10^6/uL (3.50-5.40); WHITE BLOOD COUNT 8.9 x10^3/uL (4.0-11.0)
[2020-09-26 08:22] LABS: CALCIUM 8.4 mg/dL (8.5-10.1); CREATININE 0.5 mg/dL (0.6-1.0); GFR 117.5; POTASSIUM 3.2 mmol/L (3.5-5.1)
--- NOTE | 2020-09-26 08:41 | PDOC ---
PROGRESS NOTES Date of Service DATE: 09/26/20 TIME: 08:39 Assessment Problems Medical Problems: (1) AMS (altered mental status) Status: Acute (2) Dementia Status: Acute Small subdural hematoma of doubtful clinical significance, but it does imply that there is also a cerebral concussion. She is much more alert today. Head CT does not show the subdural Dementia, at baseline, lives alone. Possible postconcussion syndrome No obvious metabolic issues such as urinary tract infection, additional labs are negative N.p.o., awaiting speech evaluation Hypertension, hyperlipidemia Plan With this improvement she may not need hospice, hopefully she will pass her swallowing Discharge to [facility] unit Subjective No complaints Objective Vital Signs Date Time Temp Pulse Resp B/P (MAP) Pulse Ox O2 Delivery O2 Flow Rate FiO2 09/26/20 07:00 98.0 89 14 148/71 (96) 100 Room Air 98.0 Intake and Output 09/26/20 07:00 Intake Total 1480 ml Output Total 1575 ml Balance -95 ml Intake Oral 480 ml IV Total 1000 ml Output Urine Total 1575 ml PHYSICAL EXAM Alert, does not know date, knows she is in the hospital but does not know its name PERRL. EOMI. CN: no focal findings. Muscle tone: normal. Muscle strength: 4/5 DTR: 1+ Plantar reflex: Flexor Bilateral grasp reflexes Gait: not examined in bed. Sensory exam: no abnormal findings. No cerebellar signs elicited. Review of Relevant I have reviewed the following items roxy (where applicable) has been applied. Labs Laboratory Tests Test 09/25/20 07:20 09/26/20 06:45 White Blood Count 7.8 x10^3/uL (4.0-11.0) Red Blood Count 4.49 x10^6/uL (3.50-5.40) Hemoglobin 13.4 g/dL (12.0-15.5) Hematocrit 39.6 % (36.0-47.0) Mean Corpuscular Volume 88 fL (79-100) Mean Corpuscular Hemoglobin 30 pg (25-35) Mean Corpuscular Hemoglobin Concent 34 g/dL (31-37) Red Cell Distribution Width 15.2 % (11.5-14.5) Platelet Count 395 x10^3/uL (140-400) Neutrophils (%) (Auto) 66 % (31-73) Lymphocytes (%) (Auto) 20 % (24-48) Monocytes (%) (Auto) 11 % (0-9) Eosinophils (%) (Auto) 1 % (0-3) Basophils (%) (Auto) 2 % (0-3) Neutrophils # (Auto) 5.1 x10^3/uL (1.8-7.7) Lymphocytes # (Auto) 1.6 x10^3/uL (1.0-4.8) Monocytes # (Auto) 0.9 x10^3/uL (0.0-1.1) Eosinophils # (Auto) 0.1 x10^3/uL (0.0-0.7) Basophils # (Auto) 0.1 x10^3/uL (0.0-0.2) Sodium Level 142 mmol/L (136-145) 142 mmol/L (136-145) Potassium Level 3.1 mmol/L (3.5-5.1) 3.2 mmol/L (3.5-5.1) Chloride Level 105 mmol/L (98-107) 105 mmol/L (98-107) Carbon Dioxide Level 29 mmol/L (21-32) 26 mmol/L (21-32) Anion Gap 8 (6-14) 11 (6-14) Blood Urea Nitrogen 15 mg/dL (7-20) 20 mg/dL (7-20) Creatinine 0.6 mg/dL (0.6-1.0) 0.5 mg/dL (0.6-1.0) Estimated GFR (Cockcroft-Gault) 95.2 117.5 Glucose Level 94 mg/dL (70-99) 90 mg/dL (70-99) Calcium Level 8.3 mg/dL (8.5-10.1) 8.4 mg/dL (8.5-10.1) Laboratory Tests Test 09/26/20 06:45 Sodium Level 142 mmol/L (136-145) Potassium Level 3.2 mmol/L (3.5-5.1) Chloride Level 105 mmol/L (98-107) Carbon Dioxide Level 26 mmol/L (21-32) Anion Gap 11 (6-14) Blood Urea Nitrogen 20 mg/dL (7-20) Creatinine 0.5 mg/dL (0.6-1.0) Estimated GFR (Cockcroft-Gault) 117.5 Glucose Level 90 mg/dL (70-99) Calcium Level 8.4 mg/dL (8.5-10.1) Microbiology 09/23/20 Blood Culture - Preliminary, Resulted NO GROWTH AFTER 3 DAYS Medications Current Medications Sodium Chloride (Normal Saline Flush) 3 ml QSHIFT PRN IV AFTER MEDS AND BLOOD DRAWS; Start 09/22/20 at 15:15 Sodium Chloride 1,000 ml @ 70 mls/hr [id number] IV Last administered on 09/23/20at 08:02; Start 09/22/20 at 15:15; Stop 09/23/20 at 11:34; Status DC Ondansetron HCl (Zofran) 4 mg PRN Q4HRS PRN IV NAUSEA/VOMITING; Start 09/22/20 at 15:15 Acetaminophen (Tylenol) 650 mg PRN Q4HRS PRN PO TEMP OVER 100.4F OR MILD PAIN; Start 09/22/20 at 15:15 Al Hydroxide/Mg Hydroxide (Mylanta Plus Xs) 30 ml PRN DAILY PRN PO HEARTBURN / GAS; Start 09/22/20 at 15:15 Sodium Monofluorophosphate (Fleet Adult) 133 ml PRN DAILY PRN [place] CONSTIPATION; Start 09/22/20 at 15:15; Stop 09/23/20 at 11:34; Status DC Docusate Sodium (Colace) 100 mg PRN BID PRN PO HARD STOOLS; Start 09/22/20 at 15:15 Albuterol Sulfate (Ventolin Neb Soln) 2.5 mg PRN Q4HRS PRN NEB SHORTNESS OF BREATH; Start 09/22/20 at 15:15 Guaifenesin (Robitussin) 200 mg PRN Q4HRS PRN PO COUGH; Start 09/22/20 at 15:15 Enoxaparin Sodium (Lovenox 40mg Syringe) 40 mg Q24H SQ Last administered on 09/23/20at 21:07; Start 09/22/20 at 21:00; Stop 09/25/20 at 11:04; Status DC Amlodipine Besylate (Norvasc) 5 mg DAILY PO ; Start 09/23/20 at 09:00 Carvedilol (Coreg) 6.25 mg BIDWMEALS PO ; Start 09/22/20 at 17:00 Calcium/Vitamin D (Oscal D 500mg/ 200uts) 1 tab BIDWMEALS PO ; Start 09/22/20 at 17:00; Stop 09/25/20 at 11:04; Status DC Multivitamins (Thera M Plus) 1 tab DAILY PO ; Start 09/23/20 at 09:00 Hydralazine HCl (Apresoline Inj) 10 mg PRN Q4HRS PRN IVP ELEVATED BP, SEE COMMENTS Last administered on 09/26/20at 03:34; Start 09/23/20 at 11:45 Olanzapine (ZyPREXA ZYDIS) 5 mg PRN BID PRN PO ANXIETY / AGITATION Last administered on 09/24/20at 19:02; Start 09/23/20 at 11:45 Amino Acids/ Glycerin/ Electrolytes 1,000 ml @ 80 mls/hr [id number] IV Last administered on 09/25/20at 20:45; Start 09/23/20 at 12:15 Haloperidol Lactate (Haldol Inj) 5 mg PRN Q6HRS PRN IVP AGITATION Last administered on 09/24/20at 20:31; Start 09/23/20 at 21:00 Lorazepam (Ativan Inj) 1 mg PRN Q4HRS PRN IVP ANXIETY / AGITATION Last administered on 09/25/20at 08:58; Start 09/23/20 at 21:00 Active Scripts Active Reported Tums Ultra Strength (Calcium Carbonate) 1,177 Mg Tab.chew 1,177 Mg PO PRN PRN Potassium Chloride 10 Meq Tablet.er 10 Meq PO DAILY Carvedilol (Carvedilol) 6.25 Mg Tablet 1 Tab PO BID Calcium + D Soft Chewable Tab (Ca Carbonate/Vitamin D3/Vit K) 1 Each Tab.chew 1 Each PO Centrum Silver Tablet (Multivits-Min/Fa/Lycopene/Lut) 1 Each Tablet 1 Each PO Acetaminophen 500 Mg Tablet 500 Mg PO Amlodipine Besylate 5 Mg Tablet 1 Tab PO DAILY Vitals/I & O Vital Sign - Last 24 Hours 09/25/20 09/25/20 09/25/20 09/25/20 11:00 15:00 19:29 19:55 Temp 97.8 96.8 97.9 97.8 96.8 97.9 Pulse 75 75 54 Resp 16 16 16 B/P (MAP) 129/67 (87) 152/75 (100) 161/69 (99) Pulse Ox 90 93 97 O2 Delivery Room Air Room Air Room Air Room Air 09/25/20 09/26/20 09/26/20 09/26/20 22:24 03:25 03:34 07:00 Temp 98.0 97.8 98.0 98.0 97.8 98.0 Pulse 66 66 66 89 Resp 18 14 14 B/P (MAP) 167/75 (105) 173/56 (95) 173/86 148/71 (96) Pulse Ox 97 98 100 O2 Delivery Room Air Room Air Room Air Intake and Output 09/25/20 09/25/20 09/26/20 15:00 23:00 07:00 Intake Total 1000 ml 480 ml 0 ml Output Total 650 ml 250 ml 675 ml Balance 350 ml 230 ml -[address] HEAD WITHOUT CONTRAST. The tiny right subdural collection noted on recent MRI is difficult to appreciate by CT. A small amount may be present along the right frontal pole on image 14 versus a subdural vein. There is no mass effect. Hypoattenuation within the white matter indicates moderate to severe chronic microangiopathic change. Prominence of the lateral ventricles and hemispheric sulci indicates mild atrophy for patient age. The visualized paranasal sinuses appear clear. The orbits are unremarkable. The temporal bones are unremarkable. The calvarium reveals no suspicious lesions. There are atherosclerotic calcifications of the internal carotid and vertebral arteries. IMPRESSION: 1. The tiny right subdural collection noted on prior MRI is not appreciable by CT. No mass effect. 2. 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 Justicifation of Admission Dx: Justifications for Admission: Justification of Admission Dx: N/A DALIA SPENCER MD Sep 26, 2020 08:41
--- NOTE | 2020-09-26 08:55 | PDOC ---
[facility] PROGRESS NOTE Date of Service DOS: DATE: 09/26/20 TIME: 08:43 Chief Complaint Chief Complaint CC: Confusion Altered mental status Subdural hematoma Dementia HTN HLD Hypokalemia Hypocalcemia History of Present Illness History of Present Illness 09/26 Patient seen and examined Alert, NAD Mental status much improved Oriented to person and place, knows the day and month but not the year Afebrile Soler to bedside Failed swallow evaluation, patient will remain NPO with PPN Discussed with RN 09/25 Pt seen and examined. DW RN and DW case management. Pt is calm and resting when entering the room. Pt is pleasantly confused. Trying to get a hold of sister to communicate the situation of the pt and need for a hospice evaluation. 09/24/20 In bed awaiting brain MRI, no acute distress Not oriented to time or place, baseline mental status unknown Slowly responds to questions and commands Soler to bedside Discussed with nursing Ms Cramer is an 84 yo F w/ PMHx HTN, HLD who fell last week, with head injury was discharged from [facility] ? yesterday, poor historian for exact details, went home and " stayed up too late talking to her sister " awoke confused, family called EMS. on arrival here was confused, seen by Dr Mcmahon who was concerned for new onset AMS. Admitted and consulted Neurology, culture blood and urine, neurochecks q 4 hrs, fall precautions Afebrile. Was coughing after thin liquids this morning. Still confused also hard of hearing. She is slow to follow commands with all 4 extremities well. Friend is visiting today since patient does seem a little "out of it". Vitals/I&O Vitals/I&O: Vital Signs Date Time Temp Pulse Resp B/P (MAP) Pulse Ox O2 Delivery O2 Flow Rate FiO2 09/26/20 07:00 98.0 89 14 148/71 (96) 100 Room Air 98.0 I & O 09/25/20 09/25/20 09/26/20 15:00 23:00 07:00 Intake Total 1000 ml 480 ml 0 ml Output Total 650 ml 250 ml 675 ml Balance 350 ml 230 ml -675 ml Physical Exam General: Alert, Cooperative, No acute distress, Other (Oriented to person and place. Mental status improving.) Heart: Regular rate, No murmurs Lungs: Clear Abdomen: Normal bowel sounds, Soft Extremities: No clubbing, No cyanosis, No edema Skin: No breakdown, No significant lesion Labs Labs: Laboratory Tests Test 09/26/20 06:45 Sodium Level 142 mmol/L (136-145) Potassium Level 3.2 mmol/L (3.5-5.1) Chloride Level 105 mmol/L (98-107) Carbon Dioxide Level 26 mmol/L (21-32) Anion Gap 11 (6-14) Blood Urea Nitrogen 20 mg/dL (7-20) Creatinine 0.5 mg/dL (0.6-1.0) Estimated GFR (Cockcroft-Gault) 117.5 Glucose Level 90 mg/dL (70-99) Calcium Level 8.4 mg/dL (8.5-10.1) Review of Systems Review of Systems: Patient denies headache, vision changes, chest pain, shortness of breath, abdominal pain, musculoskeletal pain, or skin lesions Assessment and Plan Assessmemt and Plan Problems Medical Problems: (1) AMS (altered mental status) Status: Acute (2) Dementia Status: Acute ASSESSMENT: Subdural hematoma Dementia HTN HLD Hypokalemia Hypocalcemia PLAN: Neuro checks Q4H NPO PPN Potassium replacement PT/OT Ambulate with assistance Trend labs DVT prophylaxis Full code Discuss with next of kin and social work Discharge disposition pending Comment Review of Relevant I have reviewed the following items roxy (where applicable) has been applied. Justifications for Admission Other Justification ALTERED MENTAL STATUS, RECENT CONCUSSION ABENA WOOD III DO Sep 26, 2020 08:55
[2020-09-26] MEDS ORDERED: POTASSIUM CL 40MEQ IN 0.9%NACL 1,000 ML IV ONE (09:00)
[2020-09-26] MEDS: MULTIVITAMIN with MINERAL TABLET. PO SCH (09:00)
[2020-09-26 11:00] VITALS: BP 141/65
[2020-09-26] MEDS ORDERED: POTASSIUM BICARB 20 MEQ EFFERVESCENT TABLET. PO ONE (12:00)
[2020-09-26 15:00] VITALS: BP 126/61
[2020-09-26 19:16] VITALS: BP 112/56
[2020-09-26 23:50] VITALS: BP 123/54
[2020-09-27 03:59] VITALS: BP 132/62
[2020-09-27 07:31] VITALS: BP 139/65
[2020-09-27 07:43] LABS: BASO # 0.1 x10^3/uL (0.0-0.2); BASO % 1 % (0-3); EOS # 0.3 x10^3/uL (0.0-0.7); EOS % 3 % (0-3); HEMATOCRIT 40.5 % (36.0-47.0); HEMOGLOBIN 13.4 g/dL (12.0-15.5); LYMPH # 1.8 x10^3/uL (1.0-4.8); LYMPH % 23 % (24-48); MEAN CORPUSCULAR HEMOGLOBIN 29 pg (25-35); MEAN CORPUSCULAR HGB CONC 33 g/dL (31-37); MEAN CORPUSCULAR VOLUME 89 fL (79-100); MONO # 0.7 x10^3/uL (0.0-1.1); MONO % 9 % (0-9); NEUT % 63 % (31-73); PLATELET COUNT 347 x10^3/uL (140-400); RED BLOOD COUNT 4.56 x10^6/uL (3.50-5.40); RED CELL DISTRIBUTION WIDTH 14.9 % (11.5-14.5); WHITE BLOOD COUNT 7.9 x10^3/uL (4.0-11.0)
[2020-09-27 07:51] LABS: CALCIUM 8.6 mg/dL (8.5-10.1); CREATININE 0.9 mg/dL (0.6-1.0); GFR 59.7; POTASSIUM 4.1 mmol/L (3.5-5.1)
[2020-09-27] MEDS: CARVEDILOL 6.25 MG TABLET. PO SCH ×2 (08:23→17:37)
[2020-09-27] MEDS: MULTIVITAMIN with MINERAL TABLET. PO SCH (08:23)
[2020-09-27 10:06] VITALS: BP 131/54
--- NOTE | 2020-09-27 10:11 | PDOC ---
[facility] PROGRESS NOTE Date of Service DOS: DATE: 09/27/20 TIME: 10:05 Chief Complaint Chief Complaint CC: Confusion Altered mental status Subdural hematoma Dementia HTN HLD Hypokalemia, resolved Hypocalcemia, resolved History of Present Illness History of Present Illness 09/27/20 Patient seen and examined In bed, alert, no acute distress Mental status much improved Afebrile Discussed with RN, BRIDGETTE 09/26 Patient seen and examined Alert, NAD Mental status much improved Oriented to person and place, knows the day and month but not the year Afebrile Soler to bedside Failed swallow evaluation, patient will remain NPO with PPN Discussed with RN 09/25 Pt seen and examined. DW RN and DW case management. Pt is calm and resting when entering the room. Pt is pleasantly confused. Trying to get a hold of sister to communicate the situation of the pt and need for a hospice evaluation. 09/24/20 In bed awaiting brain MRI, no acute distress Not oriented to time or place, baseline mental status unknown Slowly responds to questions and commands Soler to bedside Discussed with nursing Ms Cramer is an 84 yo F w/ PMHx HTN, HLD who fell last week, with head injury was discharged from [facility] ? yesterday, poor historian for exact details, went home and " stayed up too late talking to her sister " awoke confused, family called EMS. on arrival here was confused, seen by Dr Mcmahon who was concerned for new onset AMS. Admitted and consulted Neurology, culture blood and urine, neurochecks q 4 hrs, fall precautions Afebrile. Was coughing after thin liquids this morning. Still confused also hard of hearing. She is slow to follow commands with all 4 extremities well. Friend is visiting today since patient does seem a little "out of it". Vitals/I&O Vitals/I&O: Vital Signs Date Time Temp Pulse Resp B/P (MAP) Pulse Ox O2 Delivery O2 Flow Rate FiO2 09/27/20 08:23 65 139/65 09/27/20 07:31 98.0 16 94 Room Air 98.0 I & O 09/26/20 09/26/20 09/27/20 15:00 23:00 07:00 Intake Total 1480 ml Output Total 500 ml 400 ml Balance 1480 ml -500 ml -400 ml Physical Exam General: Alert, Cooperative, No acute distress Heart: Regular rate, No murmurs Lungs: Clear Abdomen: Normal bowel sounds, Soft Extremities: No clubbing, No cyanosis, No edema Skin: No breakdown, No significant lesion Labs Labs: Laboratory Tests Test 09/27/20 06:30 White Blood Count 7.9 x10^3/uL (4.0-11.0) Red Blood Count 4.56 x10^6/uL (3.50-5.40) Hemoglobin 13.4 g/dL (12.0-15.5) Hematocrit 40.5 % (36.0-47.0) Mean Corpuscular Volume 89 fL (79-100) Mean Corpuscular Hemoglobin 29 pg (25-35) Mean Corpuscular Hemoglobin Concent 33 g/dL (31-37) Red Cell Distribution Width 14.9 % (11.5-14.5) Platelet Count 347 x10^3/uL (140-400) Neutrophils (%) (Auto) 63 % (31-73) Lymphocytes (%) (Auto) 23 % (24-48) Monocytes (%) (Auto) 9 % (0-9) Eosinophils (%) (Auto) 3 % (0-3) Basophils (%) (Auto) 1 % (0-3) Neutrophils # (Auto) 5.0 x10^3/uL (1.8-7.7) Lymphocytes # (Auto) 1.8 x10^3/uL (1.0-4.8) Monocytes # (Auto) 0.7 x10^3/uL (0.0-1.1) Eosinophils # (Auto) 0.3 x10^3/uL (0.0-0.7) Basophils # (Auto) 0.1 x10^3/uL (0.0-0.2) Sodium Level 140 mmol/L (136-145) Potassium Level 4.1 mmol/L (3.5-5.1) Chloride Level 107 mmol/L (98-107) Carbon Dioxide Level 26 mmol/L (21-32) Anion Gap 7 (6-14) Blood Urea Nitrogen 28 mg/dL (7-20) Creatinine 0.9 mg/dL (0.6-1.0) Estimated GFR (Cockcroft-Gault) 59.7 Glucose Level 91 mg/dL (70-99) Calcium Level 8.6 mg/dL (8.5-10.1) Review of Systems Review of Systems: Denies headache, dizziness, shortness of breath, swelling of the extremities, nausea, vomiting, changes in stool, dysuria, rashes, or musculoskeletal pain. Assessment and Plan Assessmemt and Plan Problems Medical Problems: (1) AMS (altered mental status) Status: Acute (2) Dementia Status: Acute ASSESSMENT: Subdural hematoma Dementia HTN HLD Hypokalemia, resolved Hypocalcemia, resolved PLAN: Discharge disposition pending Cardiac monitoring DVT prophylaxis Full code PT/OT Frequent neuro checks Appreciate subspecialist input Comment Review of Relevant I have reviewed the following items roxy (where applicable) has been applied. Medications: Current Medications Medications (Trade) Dose Ordered Sig/Lawanda Route PRN Reason Start Time Stop Time Status Last Admin Dose Admin Potassium Bicarbonate (Potassium Effervescent Tablet) 40 meq 1X ONCE PO 09/26/20 12:00 09/26/20 12:01 DC 09/26/20 12:37 Justifications for Admission Other Justification ALTERED MENTAL STATUS, RECENT CONCUSSION ABENA WOOD III DO Sep 27, 2020 10:11
--- NOTE | 2020-09-27 10:48 | SNU/HH DC ---
DISCHARGE ORDERS DISCHARGE INFORMATION: FINAL DIAGNOSIS Problems Medical Problems: (1) AMS (altered mental status) Status: Acute (2) Dementia Status: Acute CONDITION ON DISCHARGE: Stable CODE STATUS: Code Status: Full ASSISTED: SNF STAY <30 DAYS: Yes HOSPICE: HOSPICE: No HOSPICE EVAL & TREAT: No POST DISCHARGE ORDERS: ACTIVITY ORDERS: Activity as tolerated DIET AFTER DISCHARGE: Cardiac TREATMENT/EQUIPMENT ORDERS: Physical Therapy For: Evalulation/Treatment Occupational Therapy For: Evaluation/Treatment Speech Language Pathology For: Evaluation/Treatment DISCHARGE MEDICATIONS: Home Meds Reported Medications Calcium Carbonate (Tums Ultra Strength) 1,177 Mg Tab.chew, 1177 MG PO PRN PRN for HEARTBURN / GAS, TAB.CHEW 10/31/16 Potassium Chloride (POTASSIUM CHLORIDE) 10 Meq Tablet.er, 10 MEQ PO DAILY, TAB 10/31/16 Carvedilol (CARVEDILOL ) 6.25 Mg Tablet, 1 TAB PO BID, #180 TAB 1 Refill 10/31/16 Ca Carbonate/Vitamin D3/Vit K (CALCIUM + D SOFT CHEWABLE TAB) 1 Each Tab.chew, 1 EACH PO, TAB.CHEW 01/04/14 Multivits-Min/Fa/Lycopene/Lut (CENTRUM SILVER TABLET) 1 Each Tablet, 1 EACH PO 01/04/14 Acetaminophen (ACETAMINOPHEN) 500 Mg Tablet, 500 MG PO 01/04/14 Amlodipine Besylate (AMLODIPINE BESYLATE) 5 Mg Tablet, 1 TAB PO DAILY, #30 TAB 5 Refills 01/04/14 ABENA WOOD III, DO Sep 27, 2020 10:48
--- NOTE | 2020-09-27 12:13 | PDOC ---
PROGRESS NOTES Date of Service DATE: 09/27/20 TIME: 12:10 Assessment Problems Medical Problems: (1) AMS (altered mental status) Status: Acute (2) Dementia Status: Acute Small subdural hematoma of doubtful clinical significance, but it does imply that there is also a cerebral concussion. She is much more alert today. Head CT does not show the subdural Dementia, at baseline, lives alone. Possible postconcussion syndrome No obvious metabolic issues such as urinary tract infection, additional labs are negative Passed speech re-evaluation Hypertension, hyperlipidemia Plan Discharge to correction unit Follow-up with me as needed Subjective No complaints Objective Vital Signs Date Time Temp Pulse Resp B/P (MAP) Pulse Ox O2 Delivery O2 Flow Rate FiO2 09/27/20 10:06 98.1 60 16 131/54 (79) 96 Room Air 98.1 Intake and Output 09/27/20 07:00 Intake Total 1480 ml Output Total 900 ml Balance 580 ml Intake Oral 480 ml IV Total 1000 ml Output Urine Total 900 ml # Voids 5 # Bowel Movements 1 PHYSICAL EXAM Alert, does not know date, knows she is in the hospital but does not know its name. Asks me for her phone, calls it a camera PERRL. EOMI. CN: no focal findings. Muscle tone: normal. Muscle strength: 4/5 DTR: 1+ Plantar reflex: Flexor Bilateral grasp reflexes Gait: not examined in bed. Sensory exam: no abnormal findings. No cerebellar signs elicited. Review of Relevant I have reviewed the following items roxy (where applicable) has been applied. Labs Laboratory Tests Test 09/26/20 06:45 09/27/20 06:30 White Blood Count 8.9 x10^3/uL (4.0-11.0) 7.9 x10^3/uL (4.0-11.0) Red Blood Count 4.78 x10^6/uL (3.50-5.40) 4.56 x10^6/uL (3.50-5.40) Hemoglobin 14.1 g/dL (12.0-15.5) 13.4 g/dL (12.0-15.5) Hematocrit 42.2 % (36.0-47.0) 40.5 % (36.0-47.0) Mean Corpuscular Volume 88 fL (79-100) 89 fL (79-100) Mean Corpuscular Hemoglobin 30 pg (25-35) 29 pg (25-35) Mean Corpuscular Hemoglobin Concent 34 g/dL (31-37) 33 g/dL (31-37) Red Cell Distribution Width 15.0 % (11.5-14.5) 14.9 % (11.5-14.5) Platelet Count 372 x10^3/uL (140-400) 347 x10^3/uL (140-400) Neutrophils (%) (Auto) 72 % (31-73) 63 % (31-73) Lymphocytes (%) (Auto) 18 % (24-48) 23 % (24-48) Monocytes (%) (Auto) 8 % (0-9) 9 % (0-9) Eosinophils (%) (Auto) 2 % (0-3) 3 % (0-3) Basophils (%) (Auto) 1 % (0-3) 1 % (0-3) Neutrophils # (Auto) 6.4 x10^3/uL (1.8-7.7) 5.0 x10^3/uL (1.8-7.7) Lymphocytes # (Auto) 1.6 x10^3/uL (1.0-4.8) 1.8 x10^3/uL (1.0-4.8) Monocytes # (Auto) 0.7 x10^3/uL (0.0-1.1) 0.7 x10^3/uL (0.0-1.1) Eosinophils # (Auto) 0.2 x10^3/uL (0.0-0.7) 0.3 x10^3/uL (0.0-0.7) Basophils # (Auto) 0.1 x10^3/uL (0.0-0.2) 0.1 x10^3/uL (0.0-0.2) Sodium Level 142 mmol/L (136-145) 140 mmol/L (136-145) Potassium Level 3.2 mmol/L (3.5-5.1) 4.1 mmol/L (3.5-5.1) Chloride Level 105 mmol/L (98-107) 107 mmol/L (98-107) Carbon Dioxide Level 26 mmol/L (21-32) 26 mmol/L (21-32) Anion Gap 11 (6-14) 7 (6-14) Blood Urea Nitrogen 20 mg/dL (7-20) 28 mg/dL (7-20) Creatinine 0.5 mg/dL (0.6-1.0) 0.9 mg/dL (0.6-1.0) Estimated GFR (Cockcroft-Gault) 117.5 59.7 Glucose Level 90 mg/dL (70-99) 91 mg/dL (70-99) Calcium Level 8.4 mg/dL (8.5-10.1) 8.6 mg/dL (8.5-10.1) Laboratory Tests Test 09/27/20 06:30 White Blood Count 7.9 x10^3/uL (4.0-11.0) Red Blood Count 4.56 x10^6/uL (3.50-5.40) Hemoglobin 13.4 g/dL (12.0-15.5) Hematocrit 40.5 % (36.0-47.0) Mean Corpuscular Volume 89 fL (79-100) Mean Corpuscular Hemoglobin 29 pg (25-35) Mean Corpuscular Hemoglobin Concent 33 g/dL (31-37) Red Cell Distribution Width 14.9 % (11.5-14.5) Platelet Count 347 x10^3/uL (140-400) Neutrophils (%) (Auto) 63 % (31-73) Lymphocytes (%) (Auto) 23 % (24-48) Monocytes (%) (Auto) 9 % (0-9) Eosinophils (%) (Auto) 3 % (0-3) Basophils (%) (Auto) 1 % (0-3) Neutrophils # (Auto) 5.0 x10^3/uL (1.8-7.7) Lymphocytes # (Auto) 1.8 x10^3/uL (1.0-4.8) Monocytes # (Auto) 0.7 x10^3/uL (0.0-1.1) Eosinophils # (Auto) 0.3 x10^3/uL (0.0-0.7) Basophils # (Auto) 0.1 x10^3/uL (0.0-0.2) Sodium Level 140 mmol/L (136-145) Potassium Level 4.1 mmol/L (3.5-5.1) Chloride Level 107 mmol/L (98-107) Carbon Dioxide Level 26 mmol/L (21-32) Anion Gap 7 (6-14) Blood Urea Nitrogen 28 mg/dL (7-20) Creatinine 0.9 mg/dL (0.6-1.0) Estimated GFR (Cockcroft-Gault) 59.7 Glucose Level 91 mg/dL (70-99) Calcium Level 8.6 mg/dL (8.5-10.1) Microbiology 09/23/20 Blood Culture - Preliminary, Resulted NO GROWTH AFTER 4 DAYS Medications Current Medications Sodium Chloride (Normal Saline Flush) 3 ml QSHIFT PRN IV AFTER MEDS AND BLOOD DRAWS; Start 09/22/20 at 15:15 Sodium Chloride 1,000 ml @ 70 mls/hr [id number] IV Last administered on 09/23/20at 08:02; Start 09/22/20 at 15:15; Stop 09/23/20 at 11:34; Status DC Ondansetron HCl (Zofran) 4 mg PRN Q4HRS PRN IV NAUSEA/VOMITING; Start 09/22/20 at 15:15 Acetaminophen (Tylenol) 650 mg PRN Q4HRS PRN PO TEMP OVER 100.4F OR MILD PAIN; Start 09/22/20 at 15:15 Al Hydroxide/Mg Hydroxide (Mylanta Plus Xs) 30 ml PRN DAILY PRN PO HEARTBURN / GAS; Start 09/22/20 at 15:15 Sodium Monofluorophosphate (Fleet Adult) 133 ml PRN DAILY PRN OR CONSTIPATION; Start 09/22/20 at 15:15; Stop 09/23/20 at 11:34; Status DC Docusate Sodium (Colace) 100 mg PRN BID PRN PO HARD STOOLS; Start 09/22/20 at 15:15 Albuterol Sulfate (Ventolin Neb Soln) 2.5 mg PRN Q4HRS PRN NEB SHORTNESS OF BREATH; Start 09/22/20 at 15:15 Guaifenesin (Robitussin) 200 mg PRN Q4HRS PRN PO COUGH; Start 09/22/20 at 15:15 Enoxaparin Sodium (Lovenox 40mg Syringe) 40 mg Q24H SQ Last administered on 08/29 10/17at 21:07; Start 09/22/20 at 21:00; Stop 09/25/20 at 11:04; Status DC Amlodipine Besylate (Norvasc) 5 mg DAILY PO Last administered on 09/27/20 08:23; Start 09/23/20 at 09:00 Carvedilol (Coreg) 6.25 mg BIDWMEALS PO Last administered on 09/27/20 08:23; Start 09/22/20 at 17:00 Calcium/Vitamin D (Oscal D 500mg/ 200uts) 1 tab BIDWMEALS PO ; Start 09/22/20 at 17:00; Stop 09/25/20 at 11:04; Status DC Multivitamins (Thera M Plus) 1 tab DAILY PO Last administered on 09/27/20 08:23; Start 09/23/20 at 09:00 Hydralazine HCl (Apresoline Inj) 10 mg PRN Q4HRS PRN IVP ELEVATED BP, SEE COMMENTS Last administered on 09/26/20 03:34; Start 09/23/20 at 11:45 Olanzapine (ZyPREXA ZYDIS) 5 mg PRN BID PRN PO ANXIETY / AGITATION Last administered on 09/24/20 19:02; Start 09/23/20 at 11:45 Amino Acids/ Glycerin/ Electrolytes 1,000 ml @ 80 mls/hr [id number] IV Last administered on 09/25/20at 20:45; Start 09/23/20 at 12:15; Stop 09/26/20 at 11:58; Status DC Haloperidol Lactate (Haldol Inj) 5 mg PRN Q6HRS PRN IVP AGITATION, 2nd choice Last administered on 09/24/20at 20:31; Start 09/23/20 at 21:00 Lorazepam (Ativan Inj) 1 mg PRN Q4HRS PRN IVP anxiety/agitation, 1st choice Last administered on 09/25/20at 08:58; Start 09/23/20 at 21:00 Potassium Chloride/Sodium Chloride 1,000 ml @ 0 mls/hr Q0M ONCE IV ; Start 09/26/20 at 09:00; Stop 09/26/20 at 11:42; Status DC Potassium Bicarbonate (Potassium Effervescent Tablet) 40 meq 1X ONCE PO Last administered on 6/30/21at 12:37; Start 09/26/20 at 12:00; Stop 09/26/20 at 12:01; Status DC Active Scripts Active Reported Tums Ultra Strength (Calcium Carbonate) 1,177 Mg Tab.chew 1,177 Mg PO PRN PRN Potassium Chloride 10 Meq Tablet.er 10 Meq PO DAILY Carvedilol (Carvedilol) 6.25 Mg Tablet 1 Tab PO BID Calcium + D Soft Chewable Tab (Ca Carbonate/Vitamin D3/Vit K) 1 Each Tab.chew 1 Each PO Centrum Silver Tablet (Multivits-Min/Fa/Lycopene/Lut) 1 Each Tablet 1 Each PO Acetaminophen 500 Mg Tablet 500 Mg PO Amlodipine Besylate 5 Mg Tablet 1 Tab PO DAILY Vitals/I & O Vital Sign - Last 24 Hours 09/26/20 09/26/20 09/26/20 09/26/20 15:00 17:38 19:16 20:00 Temp 98.1 98.4 98.1 98.4 Pulse 68 108 105 Resp 14 16 B/P (MAP) 126/61 (82) 126/61 112/56 (74) Pulse Ox 98 99 O2 Delivery Room Air Room Air Room Air 09/26/20 09/27/20 09/27/20 09/27/20 23:50 03:59 07:31 08:23 Temp 98.1 97.8 98.0 98.1 97.8 98.0 Pulse 71 53 65 65 Resp 16 16 16 B/P (MAP) 123/54 (77) 132/62 (85) 139/65 (89) 139/65 Pulse Ox 98 92 94 O2 Delivery Room Air Room Air Room Air 09/27/20 09/27/20 08:23 10:06 Temp 98.1 98.1 Pulse 65 60 Resp 16 B/P (MAP) 139/65 131/54 (79) Pulse Ox 96 O2 Delivery Room Air Intake and Output 09/26/20 09/26/20 09/27/20 15:00 23:00 07:00 Intake Total 1480 ml Output Total 500 ml 400 ml Balance 1480 ml -500 ml -400 ml Justicifation of Admission Dx: Justifications for Admission: Justification of Admission Dx: N/A DALIA SPENCER MD Sep 27, 2020 12:13
[2020-09-27 15:05] VITALS: BP 132/58
--- NOTE | 2020-09-27 17:35 | DS ---
DATE OF DISCHARGE: 09/27/2020 ADMISSION DIAGNOSES: Progression of dementia, metabolic encephalopathy, mental status change, status post subdural hematoma. DISCHARGE DIAGNOSES: Resolving metabolic encephalopathy, resolving subdural hematoma, dementia, hyperlipidemia, hypertension, resolving hypokalemia, and resolving hypocalcemia. CONSULTATIONS: Neurology. PROCEDURES: None. HOSPITAL COURSE: The patient is a pleasant elderly female with dementia, presented with mental status change. She had fallen recently and had a subdural hematoma. We admitted the patient and consulted Neurology, gave her empiric IV antibiotics and fluids and to our surprise over the past 48 hours, she has suddenly bounced back and is doing great. Today, I saw and examined her. She is way more alert. She is smiling and talking, doing well. I discussed the case with the returned case inspector. We plan to discharge to [facility]. DISPOSITION: [facility]. ACTIVITY: As tolerated. DIET: Low sodium. DISCHARGE MEDICATIONS: Please see the MRAD. Tylenol p.r.n., amlodipine 5 a day, vitamin D, calcium, carvedilol 6.25 b.i.d., multiple vitamins, and potassium 10 a day. TOTAL TIME: 32 minutes. RICH/JAVY/KRISTIN DR: Damaris TID: [id number]
[2020-09-27 18:33] VITALS: BP 115/56
[2020-09-27 22:04] VITALS: BP 117/51
[2020-09-28 02:21] VITALS: BP 122/53
[2020-09-28 07:24] VITALS: BP 134/55
[2020-09-28 07:56] LABS: BASO # 0.1 x10^3/uL (0.0-0.2); BASO % 1 % (0-3); EOS # 0.3 x10^3/uL (0.0-0.7); EOS % 3 % (0-3); HEMATOCRIT 35.1 % (36.0-47.0); HEMOGLOBIN 11.8 g/dL (12.0-15.5); LYMPH # 1.7 x10^3/uL (1.0-4.8); LYMPH % 19 % (24-48); MEAN CORPUSCULAR HEMOGLOBIN 30 pg (25-35); MEAN CORPUSCULAR HGB CONC 34 g/dL (31-37); MEAN CORPUSCULAR VOLUME 88 fL (79-100); MONO # 0.7 x10^3/uL (0.0-1.1); MONO % 8 % (0-9); NEUT # 6.1 x10^3/uL (1.8-7.7); NEUT % 68 % (31-73); PLATELET COUNT 286 x10^3/uL (140-400); RED BLOOD COUNT 3.97 x10^6/uL (3.50-5.40); RED CELL DISTRIBUTION WIDTH 15.4 % (11.5-14.5)
[2020-09-28 08:08] LABS: CALCIUM 8.2 mg/dL (8.5-10.1); CREATININE 0.8 mg/dL (0.6-1.0); GFR 68.3; POTASSIUM 3.8 mmol/L (3.5-5.1)
[2020-09-28] MEDS: MULTIVITAMIN with MINERAL TABLET. PO SCH (08:17)
[2020-09-28] MEDS: CARVEDILOL 6.25 MG TABLET. PO SCH (08:17)
--- NOTE | 2020-09-28 09:49 | PDOC ---
PROGRESS NOTES Date of Service DATE: 09/28/20 TIME: 09:47 Assessment Problems Medical Problems: (1) AMS (altered mental status) Status: Acute (2) Dementia Status: Acute Small subdural hematoma of doubtful clinical significance, but it does imply that there is also a cerebral concussion. She is much more alert today. Head CT does not show the subdural Dementia, at baseline, lives alone. Possible postconcussion syndrome No obvious metabolic issues such as urinary tract infection, additional labs are negative Passed speech re-evaluation Hypertension, hyperlipidemia Plan Discharge to retirement unit Follow-up with me as needed Shouldn't live alone Discussed with sister Subjective No complaints Objective Vital Signs Date Time Temp Pulse Resp B/P (MAP) Pulse Ox O2 Delivery O2 Flow Rate FiO2 09/28/20 08:19 76 134/55 09/28/20 07:24 97.9 16 96 Room Air 97.9 Intake and Output 09/28/20 07:00 Intake Total 800 ml Output Total 1325 ml Balance -525 ml Intake Oral 800 ml Output Urine Total 1325 ml # Voids 1 # Bowel Movements 4 PHYSICAL EXAM Alert, knows date and location PERRL. EOMI. CN: no focal findings. Muscle tone: normal. Muscle strength: 4/5 DTR: 1+ Plantar reflex: Flexor Bilateral grasp reflexes Gait: not examined in bed. Sensory exam: no abnormal findings. No cerebellar signs elicited. Review of Relevant I have reviewed the following items roxy (where applicable) has been applied. Labs Laboratory Tests Test 09/27/20 06:30 09/27/20 18:35 09/28/20 06:50 White Blood Count 7.9 x10^3/uL (4.0-11.0) 9.0 x10^3/uL (4.0-11.0) Red Blood Count 4.56 x10^6/uL (3.50-5.40) 3.97 x10^6/uL (3.50-5.40) Hemoglobin 13.4 g/dL (12.0-15.5) 11.8 g/dL (12.0-15.5) Hematocrit 40.5 % (36.0-47.0) 35.1 % (36.0-47.0) Mean Corpuscular Volume 89 fL (79-100) 88 fL (79-100) Mean Corpuscular Hemoglobin 29 pg (25-35) 30 pg (25-35) Mean Corpuscular Hemoglobin Concent 33 g/dL (31-37) 34 g/dL (31-37) Red Cell Distribution Width 14.9 % (11.5-14.5) 15.4 % (11.5-14.5) Platelet Count 347 x10^3/uL (140-400) 286 x10^3/uL (140-400) Neutrophils (%) (Auto) 63 % (31-73) 68 % (31-73) Lymphocytes (%) (Auto) 23 % (24-48) 19 % (24-48) Monocytes (%) (Auto) 9 % (0-9) 8 % (0-9) Eosinophils (%) (Auto) 3 % (0-3) 3 % (0-3) Basophils (%) (Auto) 1 % (0-3) 1 % (0-3) Neutrophils # (Auto) 5.0 x10^3/uL (1.8-7.7) 6.1 x10^3/uL (1.8-7.7) Lymphocytes # (Auto) 1.8 x10^3/uL (1.0-4.8) 1.7 x10^3/uL (1.0-4.8) Monocytes # (Auto) 0.7 x10^3/uL (0.0-1.1) 0.7 x10^3/uL (0.0-1.1) Eosinophils # (Auto) 0.3 x10^3/uL (0.0-0.7) 0.3 x10^3/uL (0.0-0.7) Basophils # (Auto) 0.1 x10^3/uL (0.0-0.2) 0.1 x10^3/uL (0.0-0.2) Sodium Level 140 mmol/L (136-145) 142 mmol/L (136-145) Potassium Level 4.1 mmol/L (3.5-5.1) 3.8 mmol/L (3.5-5.1) Chloride Level 107 mmol/L (98-107) 109 mmol/L (98-107) Carbon Dioxide Level 26 mmol/L (21-32) 27 mmol/L (21-32) Anion Gap 7 (6-14) 6 (6-14) Blood Urea Nitrogen 28 mg/dL (7-20) 26 mg/dL (7-20) Creatinine 0.9 mg/dL (0.6-1.0) 0.8 mg/dL (0.6-1.0) Estimated GFR (Cockcroft-Gault) 59.7 68.3 Glucose Level 91 mg/dL (70-99) 92 mg/dL (70-99) Calcium Level 8.6 mg/dL (8.5-10.1) 8.2 mg/dL (8.5-10.1) SARS-CoV-2 RNA (FELICIA) Negative (Negative) Laboratory Tests Test 09/27/20 18:35 09/28/20 06:50 SARS-CoV-2 RNA (FELICIA) Negative (Negative) White Blood Count 9.0 x10^3/uL (4.0-11.0) Red Blood Count 3.97 x10^6/uL (3.50-5.40) Hemoglobin 11.8 g/dL (12.0-15.5) Hematocrit 35.1 % (36.0-47.0) Mean Corpuscular Volume 88 fL (79-100) Mean Corpuscular Hemoglobin 30 pg (25-35) Mean Corpuscular Hemoglobin Concent 34 g/dL (31-37) Red Cell Distribution Width 15.4 % (11.5-14.5) Platelet Count 286 x10^3/uL (140-400) Neutrophils (%) (Auto) 68 % (31-73) Lymphocytes (%) (Auto) 19 % (24-48) Monocytes (%) (Auto) 8 % (0-9) Eosinophils (%) (Auto) 3 % (0-3) Basophils (%) (Auto) 1 % (0-3) Neutrophils # (Auto) 6.1 x10^3/uL (1.8-7.7) Lymphocytes # (Auto) 1.7 x10^3/uL (1.0-4.8) Monocytes # (Auto) 0.7 x10^3/uL (0.0-1.1) Eosinophils # (Auto) 0.3 x10^3/uL (0.0-0.7) Basophils # (Auto) 0.1 x10^3/uL (0.0-0.2) Sodium Level 142 mmol/L (136-145) Potassium Level 3.8 mmol/L (3.5-5.1) Chloride Level 109 mmol/L (98-107) Carbon Dioxide Level 27 mmol/L (21-32) Anion Gap 6 (6-14) Blood Urea Nitrogen 26 mg/dL (7-20) Creatinine 0.8 mg/dL (0.6-1.0) Estimated GFR (Cockcroft-Gault) 68.3 Glucose Level 92 mg/dL (70-99) Calcium Level 8.2 mg/dL (8.5-10.1) Microbiology 09/23/20 Blood Culture - Final, Complete NO GROWTH AFTER 5 DAYS Medications Current Medications Sodium Chloride (Normal Saline Flush) 3 ml QSHIFT PRN IV AFTER MEDS AND BLOOD DRAWS; Start 09/22/20 at 15:15 Sodium Chloride 1,000 ml @ 70 mls/hr [id number] IV Last administered on 09/23/20at 08:02; Start 09/22/20 at 15:15; Stop 09/23/20 at 11:34; Status DC Ondansetron HCl (Zofran) 4 mg PRN Q4HRS PRN IV NAUSEA/VOMITING; Start 09/22/20 at 15:15 Acetaminophen (Tylenol) 650 mg PRN Q4HRS PRN PO TEMP OVER 100.4F OR MILD PAIN Last administered on 09/27/20at 23:37; Start 09/22/20 at 15:15 Al Hydroxide/Mg Hydroxide (Mylanta Plus Xs) 30 ml PRN DAILY PRN PO HEARTBURN / GAS; Start 09/22/20 at 15:15 Sodium Monofluorophosphate (Fleet Adult) 133 ml PRN DAILY PRN HI CONSTIPATION; Start 09/22/20 at 15:15; Stop 09/23/20 at 11:34; Status DC Docusate Sodium (Colace) 100 mg PRN BID PRN PO HARD STOOLS; Start 09/22/20 at 15:15 Albuterol Sulfate (Ventolin Neb Soln) 2.5 mg PRN Q4HRS PRN NEB SHORTNESS OF BREATH; Start 09/22/20 at 15:15 Guaifenesin (Robitussin) 200 mg PRN Q4HRS PRN PO COUGH; Start 09/22/20 at 15:15 Enoxaparin Sodium (Lovenox 40mg Syringe) 40 mg Q24H SQ Last administered on 09/23/20at 21:07; Start 09/22/20 at 21:00; Stop 09/25/20 at 11:04; Status DC Amlodipine Besylate (Norvasc) 5 mg DAILY PO Last administered on 09/28/20at 08:19; Start 09/23/20 at 09:00 Carvedilol (Coreg) 6.25 mg BIDWMEALS PO Last administered on 09/28/20at 08:17; Start 09/22/20 at 17:00 Calcium/Vitamin D (Oscal D 500mg/ 200uts) 1 tab BIDWMEALS PO ; Start 09/22/20 at 17:00; Stop 09/25/20 at 11:04; Status DC Multivitamins (Thera M Plus) 1 tab DAILY PO Last administered on 09/28/20at 08:17; Start 09/23/20 at 09:00 Hydralazine HCl (Apresoline Inj) 10 mg PRN Q4HRS PRN IVP ELEVATED BP, SEE COMMENTS Last administered on 09/26/20at 03:34; Start 09/23/20 at 11:45 Olanzapine (ZyPREXA ZYDIS) 5 mg PRN BID PRN PO ANXIETY / AGITATION Last administered on 09/24/20at 19:02; Start 09/23/20 at 11:45 Amino Acids/ Glycerin/ Electrolytes 1,000 ml @ 80 mls/hr [id number] IV Last administered on 09/25/20at 20:45; Start 09/23/20 at 12:15; Stop 09/26/20 at 11:58; Status DC Haloperidol Lactate (Haldol Inj) 5 mg PRN Q6HRS PRN IVP AGITATION, 2nd choice Last administered on 09/24/20at 20:31; Start 09/23/20 at 21:00 Lorazepam (Ativan Inj) 1 mg PRN Q4HRS PRN IVP anxiety/agitation, 1st choice Last administered on 09/25/20at 08:58; Start 09/23/20 at 21:00 Potassium Chloride/Sodium Chloride 1,000 ml @ 0 mls/hr Q0M ONCE IV ; Start 09/26/20 at 09:00; Stop 09/26/20 at 11:42; Status DC Potassium Bicarbonate (Potassium Effervescent Tablet) 40 meq 1X ONCE PO Last administered on 09/26/20at 12:37; Start 09/26/20 at 12:00; Stop 09/26/20 at 12:01; Status DC Active Scripts Active Reported Tums Ultra Strength (Calcium Carbonate) 1,177 Mg Tab.chew 1,177 Mg PO PRN PRN Potassium Chloride 10 Meq Tablet.er 10 Meq PO DAILY Carvedilol (Carvedilol) 6.25 Mg Tablet 1 Tab PO BID Calcium + D Soft Chewable Tab (Ca Carbonate/Vitamin D3/Vit K) 1 Each Tab.chew 1 Each PO Centrum Silver Tablet (Multivits-Min/Fa/Lycopene/Lut) 1 Each Tablet 1 Each PO Acetaminophen 500 Mg Tablet 500 Mg PO Amlodipine Besylate 5 Mg Tablet 1 Tab PO DAILY Vitals/I & O Vital Sign - Last 24 Hours 09/27/20 09/27/20 09/27/20 09/27/20 10:06 15:05 17:37 18:33 Temp 98.1 98.0 97.7 98.1 98.0 97.7 Pulse 60 78 78 82 Resp 16 16 16 B/P (MAP) 131/54 (79) 132/58 (82) 132/58 115/56 (75) Pulse Ox 96 97 96 O2 Delivery Room Air Room Air Room Air 09/27/20 09/27/20 09/28/20 09/28/20 20:00 22:04 02:21 07:24 Temp 98.3 97.8 97.9 98.3 97.8 97.9 Pulse 92 70 76 Resp 16 16 16 B/P (MAP) 117/51 (73) 122/53 (76) 134/55 (81) Pulse Ox 98 97 96 O2 Delivery Room Air Room Air Room Air Room Air 09/28/20 09/28/20 08:17 08:19 Pulse 76 76 B/P (MAP) 134/55 134/55 Intake and Output 09/27/20 09/27/20 09/28/20 15:00 23:00 07:00 Intake Total 300 ml 400 ml 100 ml Output Total 800 ml 400 ml 125 ml Balance -500 ml 0 ml -25 ml Justicifation of Admission Dx: Justifications for Admission: Justification of Admission Dx: N/A DALIA SPENCER MD Sep 28, 2020 09:49
[2020-09-28 10:55] VITALS: BP 125/59
[2020-09-28] MEDS ORDERED: CARV12.5 PO (10:56)
[2020-09-28] MEDS ORDERED: GABA300C18 PO (10:58)
[2020-09-28] MEDS ORDERED: TRAM50TA PO (10:59)
[2020-09-28] MEDS ORDERED: FURO20TA3 PO (10:59)
[2020-09-28] MEDS ORDERED: OLAN5TAB9 PO (11:00)
--- NOTE | 2020-09-28 11:47 | PDOC ---
[facility] PROGRESS NOTE Date of Service DOS: DATE: 09/28/20 TIME: 11:44 Chief Complaint Chief Complaint CC: Confusion Altered mental status Subdural hematoma Dementia HTN HLD Hypokalemia, resolved Hypocalcemia, resolved History of Present Illness History of Present Illness 09/28/20 09/27/20 Patient seen and examined In bed, alert, no acute distress Mental status suzy Afebrile Discussed with BRIDGETTE BELLE 09/27/20 Patient seen and examined In bed, alert, no acute distress Mental status much improved Afebrile Discussed with BRIDGETTE BELLE 09/26 Patient seen and examined Alert, NAD Mental status much improved Oriented to person and place, knows the day and month but not the year Afebrile Soler to bedside Failed swallow evaluation, patient will remain NPO with PPN Discussed with RN 09/25 Pt seen and examined. DW RN and DW case management. Pt is calm and resting when entering the room. Pt is pleasantly confused. Trying to get a hold of sister to communicate the situation of the pt and need for a hospice evaluation. 09/24/20 In bed awaiting brain MRI, no acute distress Not oriented to time or place, baseline mental status unknown Slowly responds to questions and commands Soler to bedside Discussed with nursing Ms Cramer is an 84 yo F w/ PMHx HTN, HLD who fell last week, with head injury was discharged from [facility] yesterday, poor historian for exact details, went home and " stayed up too late talking to her sister " awoke confused, family called EMS. on arrival here was confused, seen by Dr Mcmahon who was concerned for new onset AMS. Admitted and consulted Neurology, culture blood and urine, neurochecks q 4 hrs, fall precautions Afebrile. Was coughing after thin liquids this morning. Still confused also hard of hearing. She is slow to follow commands with all 4 extremities well. Friend is visiting today since patient does seem a little "out of it". Vitals/I&O Vitals/I&O: Vital Signs Date Time Temp Pulse Resp B/P (MAP) Pulse Ox O2 Delivery O2 Flow Rate FiO2 09/28/20 10:55 98.1 80 16 125/59 (81) 96 Room Air 98.1 I & O 09/27/20 09/27/20 09/28/20 15:00 23:00 07:00 Intake Total 300 ml 400 ml 100 ml Output Total 800 ml 400 ml 125 ml Balance -500 ml 0 ml -25 ml Physical Exam General: Alert, Cooperative, No acute distress Heart: Regular rate, No murmurs Lungs: Clear Abdomen: Normal bowel sounds, Soft Extremities: No clubbing, No cyanosis, No edema Skin: No breakdown, No significant lesion Labs Labs: Laboratory Tests Test 09/27/20 18:35 09/28/20 06:50 SARS-CoV-2 RNA (FELICIA) Negative (Negative) White Blood Count 9.0 x10^3/uL (4.0-11.0) Red Blood Count 3.97 x10^6/uL (3.50-5.40) Hemoglobin 11.8 g/dL (12.0-15.5) Hematocrit 35.1 % (36.0-47.0) Mean Corpuscular Volume 88 fL (79-100) Mean Corpuscular Hemoglobin 30 pg (25-35) Mean Corpuscular Hemoglobin Concent 34 g/dL (31-37) Red Cell Distribution Width 15.4 % (11.5-14.5) Platelet Count 286 x10^3/uL (140-400) Neutrophils (%) (Auto) 68 % (31-73) Lymphocytes (%) (Auto) 19 % (24-48) Monocytes (%) (Auto) 8 % (0-9) Eosinophils (%) (Auto) 3 % (0-3) Basophils (%) (Auto) 1 % (0-3) Neutrophils # (Auto) 6.1 x10^3/uL (1.8-7.7) Lymphocytes # (Auto) 1.7 x10^3/uL (1.0-4.8) Monocytes # (Auto) 0.7 x10^3/uL (0.0-1.1) Eosinophils # (Auto) 0.3 x10^3/uL (0.0-0.7) Basophils # (Auto) 0.1 x10^3/uL (0.0-0.2) Sodium Level 142 mmol/L (136-145) Potassium Level 3.8 mmol/L (3.5-5.1) Chloride Level 109 mmol/L (98-107) Carbon Dioxide Level 27 mmol/L (21-32) Anion Gap 6 (6-14) Blood Urea Nitrogen 26 mg/dL (7-20) Creatinine 0.8 mg/dL (0.6-1.0) Estimated GFR (Cockcroft-Gault) 68.3 Glucose Level 92 mg/dL (70-99) Calcium Level 8.2 mg/dL (8.5-10.1) Review of Systems Review of Systems: No headache, dizziness, vision changes. No chest pain or shortness of breath. No abdominal pain or change in stools. No dysuria. No musculoskeletal pain or skin lesions Assessment and Plan Assessmemt and Plan Problems Medical Problems: (1) AMS (altered mental status) Status: Acute (2) Dementia Status: Acute ASSESSMENT Subdural hematoma Dementia HTN HLD Hypokalemia, resolved Hypocalcemia, resolved PLAN Discharge disposition pending PT/OT Thin liquid diet Frequent neuro checks Full code Appreciate subspecialist input Comment Review of Relevant I have reviewed the following items roxy (where applicable) has been applied. Justifications for Admission Other Justification ALTERED MENTAL STATUS, RECENT CONCUSSION ABENA WOOD III DO Sep 28, 2020 11:47
== END 2020-09-28 12:59 | DRG 82 ==
LOC: ER 10:46 → ED HOLD 13:30 → 2 NORTH 18:12
PROVIDERS: ADMIT Family Medicine; ATTEND Family Medicine
DX: S06.5X9A Traumatic subdural hemorrhage with loss of consciousness of unspecified duration, initial encounter (principal); G93.41 Metabolic encephalopathy; R65.11 Systemic inflammatory response syndrome (SIRS) of non-infectious origin with acute organ dysfunction; R47.01 Aphasia; E78.00 Pure hypercholesterolemia, unspecified; E78.5 Hyperlipidemia, unspecified; E83.51 Hypocalcemia; F03.90 Unspecified dementia, unspecified severity, without behavioral disturbance, psychotic disturbance, mood disturbance, and anxiety; I10 Essential (primary) hypertension; I73.9 Peripheral vascular disease, unspecified; E87.6 Hypokalemia; M19.90 Unspecified osteoarthritis, unspecified site; Z51.5 Encounter for palliative care; Z82.49 Family history of ischemic heart disease and other diseases of the circulatory system; Z96.652 Presence of left artificial knee joint; Z96.642 Presence of left artificial hip joint; Z88.8 Allergy status to other drugs, medicaments and biological substances; Z90.710 Acquired absence of both cervix and uterus; Z20.822 Contact with and (suspected) exposure to COVID-19; Z60.2 Problems related to living alone
CPT/HCPCS: 36415; 70450; 70551; 80048; 80053; 80061; 81001; 82140; 82607; 83735; 84439; 84443; 84484; 85025; 85610; 85651; 85730; 86140; 86592; 87040; 93005; J0360; J1630; J1650; J2060; J3490; J7030; U0003; U0005; 92526-GN; 92610-GN; 97116-GP; 97535-GO; 99285-25; G0378